=== PATIENT | male | born 1945 | race Caucasian/White ===

== ENCOUNTER 2018-01-02 14:05 | Observation (INO) | payer MEDICARE ==
[~2018-01-02] VITALS: Ht 180.3 cm; Wt 73.9 kg
[~2018-01-02 14:05] MED LIST: BUPROPION XL300 MG PO; CIPRO500 MG PO; DIAZEPAM5 MG PO; DICYCLOMINE; FLAGYL500 MG PO; HYOSCYAMINE; SIMVASTATIN40 MG PO
--- OUTSIDE RECORDS SUMMARY | 2018-01-02 14:07 | XMS REPORT | Clinical Summary ---
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 Disp. Refills Start End Date Status Date lisinopril Take 5 mg by mouth daily. Active (PRINIVIL,ZESTRIL) 5 MG tablet simvastatin (ZOCOR) 40 MG Take 40 mg by mouth Active tablet nightly. buPROPion (WELLBUTRIN SR) Take 300 mg by mouth Active 150 MG 12 hr tablet daily . acetaminophen (TYLENOL) Take 650 mg by mouth Active 325 MG tablet every 6 (six) hours as needed for Pain. eszopiclone (LUNESTA) 1 Take 3 mg by mouth every Active MG tablet night as needed Take immediately before bedtime. . carvedilol (COREG) 3.125 Take 3.125 mg by mouth 2 Active MG tablet (two) times daily with breakfast and dinner. traMADol (ULTRAM) 50 mg Take 50 mg by mouth every Active tablet 6 (six) hours as needed for Pain. multivitamin per tablet Take 1 tablet by mouth 05/04/20 Discontin daily. 17 ued meloxicam (MOBIC) 15 MG Take 15 mg by mouth 05/04/20 Discontin tablet daily. 17 ued baclofen (LIORESAL) 10 MG Take 10 mg by mouth 3 05/04/20 Discontin tablet (three) times daily. 17 ued Active Problems Problem Noted Date ED (erectile dysfunction) 06/29/2016 Encounters Date Type Specialty Care Team Description 05/06/2017 Hospital Tanmay Valdez MD Encounter 05/06/2017 Procedure Pass 05/06/2017 Surgery Tanmay Valdez MD INJECTION,EPIDURAL STEROID LUMBAR TRANSFORAMINAL 05/05/2017 Anesthesia Lisandra Sosa Event MD 05/04/2017 Hospital Pre-Admission Testing Encounter 01/17/2017 Outside Orders Radiology Julissa Mahajan MD Right anterior shoulder pain (Primary Dx) after 01/01/2017 Social History Tobacco Use Types Packs/Day Years Used Date Never Smoker Smokeless Tobacco: Never Used Alcohol Use Drinks/Week oz/Week Comments Yes 1 Glasses of 1.2 wine 1 Cans of beer Sex Assigned at Date Recorded Not on file Last Filed Vital Signs Vital Sign Reading Time Taken Blood Pressure 92/59 05/06/2017 9:55 AM CDT Pulse 65 05/06/2017 9:55 AM CDT Temperature 36.7 C (98 F) 05/06/2017 9:40 AM CDT Respiratory Rate 16 05/06/2017 9:55 AM CDT Oxygen Saturation 100% 05/06/2017 9:55 AM CDT Inhaled Oxygen - - Concentration Weight 75.3 kg (166 lb) 05/06/2017 8:35 AM CDT Height 180.3 cm (5' 11") 05/06/2017 8:35 AM CDT Body Mass Index 23.15 05/06/2017 8:35 AM CDT Plan of Treatment Not on file Implants Implanted Type Area Central Processing Technician Device Expiration Model / Identifier Date Serial / Lot Kit Asm Titan Pnle Imp [id number] - Urology N/A: Penis COLOPLAST 11/01 [id number] A/S:COLOPLAST / Implanted: Qty: 1 on 06/29/2016 by / Santiago Griffin MD [id number] [place] Titan Cl 125cc [id number] - Urology N/A: COLOPLAST 11/22/2020 [id number] / [id number] Abdomen A/S:COLOPLAST / Implanted: Qty: 1 on 06/29/2016 by [id number] Santiago Griffin MD Titan Cylinders 20cm Urology N/A: Penis [employer]LAST [employer]. 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 Radiology provided fluoroscopy for epidural injection performed by Dr. Valdez.Neither radiologist presence nor interpretation were requested. Please refer to the operative report for further information. Fluoroscopy time was 0.5 minutes. Total # of images: 3 Signed: Shen Campos MD Report Verified Date/Time:05/06/2017 11:51:48 Reading Location: [address] Radiology Reading Room Procedure Note Interface, External Ris In - 05/06/2017 11:53 AM CDT FINAL REPORT Nondiagnostic exam. Radiology provided fluoroscopy for epidural injection performed by Dr. Valdez. Neither radiologist presence nor interpretation were requested. Please refer to the operative report for further information. Fluoroscopy time was 0.5 minutes. Total # of images: 3 Signed: Shen Campos MD Report Verified Date/Time: 05/06/2017 11:51:48 Reading Location: [address] Radiology Reading Room after 01/01/2017
--- OUTSIDE RECORDS SUMMARY | 2018-01-02 14:07 | XMS REPORT | Continuity of Care Document ---
Author Author Interface Organization Interface Address Unknown Phone Unavailable Problems Problem Status Onset Date Classification Date Reported Comments Source Z91.81 M25.50 M25.531 Active 01/22/2017 [facility] RIGHT WRIST Active 12/23/2016 [facility] [place] RIGHT WRIST Active 2016 [facility] [place] ACUTE CHEST PAIN Active 07/23 [facility] CHEST PAIN Active 07/23/2016 [facility] Benign essential hypertension Active Problem 12/21/2017 [facility] ,[facility] Chronic bronchitis Active Problem 12/21/2017 [facility] Chronic pain Active Problem 12/21/2017 [facility] Major depression, chronic Active Problem 12/21/2017 [facility], [facility] Claustrophobia Active Problem 12/21/2017 [facility] History of penile implant Active Problem 12/21/2017 [facility], [facility] Hypercholesterolemia Active Problem 12/21/2017 [facility] Impacted cerumen of both ears Active Problem 12/21/2017 [facility] ,[facility] Irritable bowel syndrome Active Problem 12/21/2017 [facility], [facility] Low back pain Active Problem 12/21/2017 [facility] Mitral valve prolapse Active Problem 12/21/2017 [facility], [facility] Polyarthralgia Active Problem 12/21/2017 [facility] Chronic pain of right wrist Active Problem 12/21/2017 [facility] Panic attacks Active Problem 12/21/2017 [facility] Achilles tendon tear Active Problem 12/21/2017 [facility] Plantar fasciitis, right Active Problem 02/10/2017 [facility] Hypercholesteremia Resolved Problem 07/27/2016 [facility] Right elbow pain Active Problem 08/04/2017 [facility] Lateral epicondylitis of right elbow Active Problem 02/28 [facility] Mitral regurgitation Active Problem 08/04/2017 [facility] Lateral epicondylitis of right elbow Active Problem 08/04 [facility] CHEST PAIN, UNSPECIFIED Active [place] PAIN IN UNSPECIFIED JOINT Active [facility] Medications Medication Details Route Status Patient Instructions Ordering Provider Order Date Source eszopiclone 3 mg oral tablet
3 mg=1 tab, PO, Bedtime, PRN for insomnia, fax to [facility], X 90 day, # 90 tab, 0 Refill(s) No Longer Active 09/14/2017 [facility] Hydrocortisone 10 MG/ML / Neomycin 3.5 MG/ML / Polymyxin B 80200 UNT/ML Otic Solution
2 drp, RIGHT EAR, QID, X 10 day, # 10 ml , 0 Refill(s), Pharmacy: [id number] No Longer Active 09/14/2017 [facility] Azelastine hydrochloride 0.137 MG/ACTUAT / Fluticasone propionate 0.05 MG/ ACTUAT Metered Dose Nasal May
2 spray, NASAL, BID, X 30 day, # 23 gm, 1 Refill(s), Pharmacy: [facility] No Longer Active 09/09/2017 [facility] Metronidazole 500 MG Oral Tablet
500 mg=1 tab, PO , TID, X 7 day, # 21 tab, 0 Refill(s), Pharmacy: [facility] [id number] No Longer Active 08/19/2017 [facility] Metronidazole 500 MG Oral Tablet
500 mg=1 tab, PO , TID, 0 Refill(s) Active 07/28 [facility] Ciprofloxacin 500 MG Oral Tablet [Cipro]
500 mg= 1 tab, PO, Q12H, 0 Refill(s) Active 07/28/2017 [facility] simvastatin 40 mg oral tablet
40 mg=1 tab, PO, Bedtime, # 90 tab, 0 Refill(s), [facility] Active 07/08/2017 [facility] meloxicam 15 mg oral tablet
See Instructions, Take 1 tablet by mouth daily as needed for pain, # 90 tab, 0 Refill(s), [facility] Active 07/08/2017 [facility] lisinopril 5 mg oral tablet
5 mg=1 tab, PO, Daily , # 90 tab, 0 Refill(s), Pharmacy: [facility] Active 07/08/2017 [facility] hyoscyamine 0.125 mg oral tablet
0.25 mg=2 tab, PO, TID, PRN spasm, # 270 tab, 0 Refill(s), Pharmacy: [facility] Active 07/08/2017 [facility] Fluticasone propionate 0.05 MG/ACTUAT Metered Dose Nasal May
50 microgram=1 spray, NASAL, Daily, # 3 ea, 0 Refill(s), Pharmacy : [facility] Active 07/08/2017 [facility] eszopiclone 3 mg oral tablet
3 mg=1 tab, PO, Bedtime, PRN for insomnia, X 90 day, # 90 tab, 0 Refill(s) Active 07/08/2017 [facility] diazepam 5 mg oral tablet
5 mg=1 tab, PO, Q8H, PRN Anxiety, # 40 tab, 2 Refill(s) Active 07/08/2017 [facility] carvedilol 3.125 mg oral tablet
3.125 mg=1 tab, PO, BID, # 180 tab, 0 Refill(s), [facility]acy: [facility] Active 07/08/2017 [facility] baclofen 10 mg oral tablet
10 mg=1 tab, PO, TID, PRN muscle spasm, # 270 tab, 0 Refill(s), Pharmacy: [facility] Active 07/08/2017 [facility] tramadol hydrochloride 50 MG Oral Tablet
50 mg=1 tab, PO, Q4H, # 90 tab, 2 Refill(s) Active 07/08/2017 [facility] buPROPion 150 mg/24 hours (XL) oral tablet, extended release
150 mg=1 tab, PO, TID, # 270 tab, 0 Refill(s), [facility]: [facility] Active 07/08/2017 [facility] Carvedilol 3.125 MG Oral Tablet <td styleCode="xmain"> <span style="xdiv"><span style="Bold" ID="[id number]">Carvedilol 3.125 MG Oral Tablet</span></span><span style="xasIgnore">
</span><span style="xdiv">< span style="xsecondary"><span ID="[id number]">TAKE 1 TABLET TWICE DAILY WITH MEALS.</span></span></span><span style="xasIgnore">
</span><list styleCode="xlistForTable"><li styleCode="xlistForTable"><table styleCode= "xtableWithinTable"><tbody styleCode="xtableWithinTable"><tr><td><span style= "xLabel Italics"> Quantity: </span><span ID="[id number]"><span>60</span></ span></td><td><span style="xLabel Italics"> Refills: </span><span ID="[id number]"> <span>3</span></span></td></tr></tbody></table></li></list><span style= "xasIgnore">
</span><span style="xdiv"><span style="xsecondary"/></span></td ><td styleCode="xdates"><span style="xasIgnore">
</span><span style= "xproviderName"><span style="xproviderLastName">DAYAH</span><span> M.D., PHIL </span></span></td><td styleCode="xdetails"><list styleCode="xlistForTable "><li styleCode="xlistForTable"><table styleCode="xtableWithinTable"><tbody styleCode="xtableWithinTable"><tr><td><span style="xLabel Italics"> Start : </ span>08-Dec-2016</td></tr></tbody></table></li></list><span style="xstatus">< span style="xvalue">Active</span><span style="xasIgnore">
</span></span></td > ORAL Active DAYAH 12/08/2016 [facility] Metoprolol Succinate ER 25 MG Oral Tablet Extended Release 24 Hour <td styleCode="xmain"><span style="xdiv"><span style="Bold" ID= "[id number]">Metoprolol Succinate ER 25 MG Oral Tablet Extended Release 24 Hour</ span></span><span style="xasIgnore">
</span><span style="xdiv"><span style= "xsecondary"><span ID="[id number]">TAKE ONE TABLET BY MOUTH TWICE DAILY</span></ span></span><span style="xasIgnore">
</span><list styleCode="xlistForTable"> <li styleCode="xlistForTable"><table styleCode="xtableWithinTable"><tbody styleCode="xtableWithinTable"><tr><td><span style="xLabel Italics"> Quantity: </ span><span ID="[id number]"><span>180</span></span></td><td><span style="xLabel Italics"> Refills: </span><span ID="[id number]"><span>3</span></span></td></ tr></tbody></table></li></list><span style="xasIgnore">
</span><span style= "xdiv"><span style="xsecondary"/></span></td><td styleCode="xdates"><span style= "xasIgnore">
</span><span style="xproviderName"><span style= "xproviderLastName">GEMA</span><span> M.D., CIERRA </span></span></td><td styleCode="xdetails"><list styleCode="xlistForTable"><li styleCode= "xlistForTable"><table styleCode="xtableWithinTable"><tbody styleCode= "xtableWithinTable"><tr><td><span style="xLabel Italics"> Start : </span>2016</td></tr></tbody></table></li></list><span style="xstatus"><span style ="xvalue">Active</span><span style="xasIgnore">
</span></span></td> ORAL Active GEMA 11/02/2016 [facility]
2 mg, Route: PO, Bedtime, Dosing Weight 81.818, kg, Start date: 07/24/16 21:00:00 [employer], Duration: 30 day, Stop date: 21:00:00 [employer] Inactive 07/2016 [facility] Trazodone Hydrochloride 50 MG Oral Tablet
50 mg, 1 tab, Route: PO, Drug form: TAB, Bedtime, Dosing Weight 75, kg, Start date: 21:00:00 [employer], Duration: 30 day, Stop date: 08/22/16 21:00:00 [employer] Inactive 07/25/2016 [facility] aspirin 81 mg tablet, enteric coated
81 mg=1 tab , PO, Daily, 0 Refill(s) Active 07/24/2016 [facility] Saline Flush 0.9%
10 ml, Route: IVP, Drug Form: INJ, Dosing Weight 81.818, kg, Q12H, Start date: 07/24/16 9:00:00 [employer], Duration : 30 day, Stop date: 08/22/16 21:00:00 [employer]
Notes: (Same as: BD Posiflush) Inactive 07/24/2016 [facility] aspirin 81 mg tablet, enteric coated
81 mg, 1 tab , Route: PO, Drug form: ECTAB, Daily, Dosing Weight 81.818, kg, Start date: 9:00:00 [employer], Duration: 30 day, Stop date: 08/22/16 9:00:00 [employer] Inactive 07/24/2016 [facility] Ativan
0.5 mg, 0.25 mL, Route: IV, Drug form: INJ , ONCE, Dosing Weight 75, kg, Start date: 07/24/16 2:40:00 [employer], Stop date: 07/24 2:40:00 [employer]
Notes: (Same as: Ativan) Inactive 07/24/2016 [facility] Hydralazine
10 mg, 0.5 mL, Route: IV, Drug form: INJ, Q4H, Dosing Weight 81.818, kg, PRN Hypertension, Priority: Routine, Start date: 07/24/16 0:23:00 [employer], Duration: 30 day, Stop date: 08/23/16 0:22:00 [employer] Inactive 07/24/2016 [facility] Zofran
4 mg, 2 mL, Route: IVP, Drug form: INJ, Q8H, Dosing Weight 81.818, kg, PRN Nausea, Start date: 07/24/16 0:22:00 [employer], Duration: 30 day, Stop date: 08/23/16 0:21:00 [employer]
Notes: (Same as: Zofran) MEDICATION WASTE Product Size: 4 mg Product Wasted: ___ mg Inactive 07/24/2016 [facility] Saline Flush 0.9%
10 ml, Route: IVP, Drug Form: INJ, Dosing Weight 81.818, kg, PRN, PRN Line Flush, Start date: 07/24/16 0:13: 00 [employer], Duration: 30 day, Stop date: 08/23/16 0:12:00 [employer] Inactive 07/24/2016 [facility] Ondansetron
4 mg, Route: PO, Drug form: TAB, Q8H , Dosing Weight 81.818, kg, PRN Nausea & Vomiting, Start date: 07/24/16 0:13:00 [employer], Duration: 30 day, Stop date: 08/23/16 0:12:00 [employer] Inactive 07/24/2016 [facility] Nitroglycerin
0.4 mg, 1 tab, Route: SL, Drug form : TAB, Q5Min, Dosing Weight 81.818, kg, PRN Chest Pain, Start date: 07/24/16 0: 13:00 [employer], Duration: 3 doses or times, Stop date: Limited # of times Inactive 07/24/2016 [facility] Morphine
2 mg, 1 mL, Route: IVP, Drug form: INJ, Q15Min, Dosing Weight 81.818, kg, PRN Chest Pain, Start date: 07/24/16 0:13:00 [employer], Duration: 2 doses or times, Stop date: Limited # of times
Notes: (Same as:MORPhine Sulfate) Inactive 07/24/2016 [facility] Valium
5 mg, Route: PO, ONCE, Dosing Weight 81.818, kg, Priority: STAT, Start date: 07/23/16 22:51:00 [employer], Stop date: 22:51:00 [employer] Inactive 2015 [facility] Saline Flush 0.9%
10 mL, Route: IVP, Drug Form: INJ, Dosing Weight 81.818, kg, PRN, PRN Line Flush, Start date: 07/23/16 20:49: 00 [employer], Duration: 30 day, Stop date: 08/22/16 20:48:00 [employer]
Notes: (Same as: BD Posiflush) No Longer Active 07/24/2016 [facility] Medication not documented <td styleCode="xmain"><span style="xdiv"><span style="Bold" ID="[id number]">Medication not documented</span ></span><span style="xasIgnore">
</span><span style="xdiv"><span style= "xsecondary"/></span></td><td styleCode="xdates"/><td styleCode="xdetails">< span style="xstatus"><span style="xlabel"/><span style="xvalue"/></span></td> Other [facility] Albuterol 90 MCG/ACT AERS <td styleCode="xmain"><span style="xdiv"><span style="Bold" ID="[id number]">Albuterol 90 MCG/ACT AERS</span></ span><span style="xasIgnore">
</span><list styleCode="xlistForTable">< li styleCode="xlistForTable"><table styleCode="xtableWithinTable"><tbody styleCode="xtableWithinTable"><tr><td><span style="xLabel Italics"> Refills: </ span><span ID="[id number]"><span>0</span></span></td></tr></tbody></table></li></ list><span style="xasIgnore">
</span><span style="xdiv"><span style= "xsecondary"/></span></td><td styleCode="xdates"/><td styleCode="xdetails">< span style="xstatus"><span style="xvalue">Active</span><span style="xasIgnore">< br/></span></span></td> RESPIRATORY (INHALATION) Active [facility] Ascorbic Acid 500 MG Oral Tablet <td styleCode="xmain "><span style="xdiv"><span style="Bold" ID="[id number]">Ascorbic Acid 500 MG Oral Tablet</span></span><span style="xasIgnore">
</span><list styleCode= "xlistForTable"><li styleCode="xlistForTable"><table styleCode= "xtableWithinTable"><tbody styleCode="xtableWithinTable"><tr><td><span style= "xLabel Italics"> Refills: </span><span ID="[id number]"><span>0</span></span></ td></tr></tbody></table></li></list><span style="xasIgnore">
</span><span style="xdiv"><span style="xsecondary"/></span></td><td styleCode="xdates"/> <td styleCode="xdetails"><span style="xstatus"><span style="xvalue">Active</ span><span style="xasIgnore">
</span></span></td> ORAL Active [facility] BuPROPion HCl ER (Smoking Det) 150 MG Oral Tablet Extended Release 12 Hour <td styleCode="xmain"><span style="xdiv"><span style="Bold " ID="[id number]">BuPROPion HCl ER (Smoking Det) 150 MG Oral Tablet Extended Release 12 Hour</span></span><span style="xasIgnore">
</span><span style= "xdiv"><span style="xsecondary"><span ID="[id number]">TAKE 3 TABLET DAILY</span></ span></span><span style="xasIgnore">
</span><list styleCode="xlistForTable"> <li styleCode="xlistForTable"><table styleCode="xtableWithinTable"><tbody styleCode="xtableWithinTable"><tr><td><span style="xLabel Italics"> Refills: &lt ;/span><span ID="[id number]"><span>0</span></span></td></tr></tbody></table></li>< /list><span style="xasIgnore">
</span><span style="xdiv"><span style= "xsecondary"/></span></td><td styleCode="xdates"/><td styleCode="xdetails">< span style="xstatus"><span style="xvalue">Active</span><span style="xasIgnore">< br/></span></span></td> ORAL Active [facility] DiazePAM 5 MG Oral Tablet <td styleCode="xmain"><span style="xdiv"><span style="Bold" ID="[id number]">DiazePAM 5 MG Oral Tablet</span></ span><span style="xasIgnore">
</span><list styleCode="xlistForTable">< li styleCode="xlistForTable"><table styleCode="xtableWithinTable"><tbody styleCode="xtableWithinTable"><tr><td><span style="xLabel Italics"> Refills: </ span><span ID="[id number]"><span>0</span></span></td></tr></tbody></table></li></ list><span style="xasIgnore">
</span><span style="xdiv"><span style= "xsecondary"/></span></td><td styleCode="xdates"/><td styleCode="xdetails">< span style="xstatus"><span style="xvalue">Active</span><span style="xasIgnore">< br/></span></span></td> ORAL Active [facility] Dicyclomine HCl - 10 MG Oral Capsule <td styleCode= "xmain"><span style="xdiv"><span style="Bold" ID="[id number]">Dicyclomine HCl - 10 MG Oral Capsule</span></span><span style="xasIgnore">
</span><span style= "xdiv"><span style="xsecondary"><span ID="[id number]">TAKE 1 CAPSULE 3 TIMES DAILY PRN</span></span></span><span style="xasIgnore">
</span><list styleCode="xlistForTable"><li styleCode="xlistForTable"><table styleCode= "xtableWithinTable"><tbody styleCode="xtableWithinTable"><tr><td><span style= "xLabel Italics"> Refills: </span><span ID="[id number]"><span>0</span></span> </td></tr></tbody></table></li></list><span style="xasIgnore">
</span><span style="xdiv"><span style="xsecondary"/></span></td><td styleCode="xdates"/><td styleCode="xdetails"><span style="xstatus"><span style="xvalue">Active</span>< span style="xasIgnore">
</span></span></td> ORAL Active [facility] Eszopiclone 3 MG Oral Tablet <td styleCode="xmain">< span style="xdiv"><span style="Bold" ID="[id number]">Eszopiclone 3 MG Oral Tablet< /span></span><span style="xasIgnore">
</span><span style="xdiv"><span style="xsecondary"><span ID="[id number]">TAKE 1 TABLET AT BEDTIME NEEDED FOR SLEEP.</span></span></span><span style="xasIgnore">
</span><list styleCode= "xlistForTable"><li styleCode="xlistForTable"><table styleCode= "xtableWithinTable"><tbody styleCode="xtableWithinTable"><tr><td><span style= "xLabel Italics"> Refills: </span><span ID="[id number]"><span>0</span></span></td> </tr></tbody></table></li></list><span style="xasIgnore">
</span><span style="xdiv"><span style="xsecondary"/></span></td><td styleCode="xdates"/><td styleCode="xdetails"><span style="xstatus"><span style="xvalue">Active</ span><span style="xasIgnore">
</span></span></td> ORAL Active [facility] Fluticasone Propionate 50 MCG/ACT Nasal Suspension < td styleCode="xmain"><span style="xdiv"><span style="Bold" ID="[id number]"> Fluticasone Propionate 50 MCG/ACT Nasal Suspension</span></span><span style= "xasIgnore">
</span><list styleCode="xlistForTable"><li styleCode= "xlistForTable"><table styleCode="xtableWithinTable"><tbody styleCode= "xtableWithinTable"><tr><td><span style="xLabel Italics"> Refills: </span><span ID="[id number]"><span>0</span></span></td></tr></tbody></table></li></list>< span style="xasIgnore">
</span><span style="xdiv"><span style="xsecondary"/> </span></td><td styleCode="xdates"/><td styleCode="xdetails"><span style= "xstatus"><span style="xvalue">Active</span><span style="xasIgnore">
</ span></span></td> NASAL Active [facility] Hyoscyamine Sulfate 0.125 MG Oral Tablet Dispersible < td styleCode="xmain"><span style="xdiv"><span style="Bold" ID="[id number]"> Hyoscyamine Sulfate 0.125 MG Oral Tablet Dispersible</span></span><span style= "xasIgnore">
</span><list styleCode="xlistForTable"><li styleCode= "xlistForTable"><table styleCode="xtableWithinTable"><tbody styleCode= "xtableWithinTable"><tr><td><span style="xLabel Italics"> Refills: </span><span ID="[id number]"><span>0</span></span></td></tr></tbody></table></li></list><span style="xasIgnore">
</span><span style="xdiv"><span style="xsecondary"/></ span></td><td styleCode="xdates"/><td styleCode="xdetails"><span style="xstatus "><span style="xvalue">Active</span><span style="xasIgnore">
</span></span>< /td> ORAL Active [facility] Lisinopril 5 MG Oral Tablet <td styleCode="xmain">< span style="xdiv"><span style="Bold" ID="[id number]">Lisinopril 5 MG Oral Tablet</ span></span><span style="xasIgnore">
</span><span style="xdiv"><span style="xsecondary"><span ID="[id number]">TAKE 1/2 TABLET DAILY.</span></span></ span><span style="xasIgnore">
</span><list styleCode="xlistForTable"><li styleCode="xlistForTable"><table styleCode="xtableWithinTable"><tbody styleCode= "xtableWithinTable"><tr><td><span style="xLabel Italics"> Quantity: </span>< span ID="[id number]"><span>1</span></span></td><td><span style="xLabel Italics "> Refills: </span><span ID="[id number]"><span>0</span></span></td></tr></tbody></ table></li></list><span style="xasIgnore">
</span><span style="xdiv"><span style="xsecondary"/></span></td><td styleCode="xdates"><span style="xasIgnore">< br/></span><span style="xproviderName"><span style="xproviderLastName">DAYAH</ span><span> M.D., PH[place] </span></span></td><td styleCode="xdetails"><span style= "xstatus"><span style="xvalue">Active</span><span style="xasIgnore">
</span> </span><span style="xdiv"><span ID="[id number]">30 Tablet Pack</span></span><span style="xasIgnore">
</span></td> ORAL Active DAY [facility] Simvastatin 40 MG Oral Tablet <td styleCode="xmain">< span style="xdiv"><span style="Bold" ID="[id number]">Simvastatin 40 MG Oral Tablet </span></span><span style="xasIgnore">
</span><span style="xdiv"><span style ="xsecondary"><span ID="[id number]">TAKE 1 TABLET AT BEDTIME.</span></span></ span><span style="xasIgnore">
</span><list styleCode="xlistForTable"><li styleCode="xlistForTable"><table styleCode="xtableWithinTable"><tbody styleCode="xtableWithinTable"><tr><td><span style="xLabel Italics"> Refills: </ span><span ID="[id number]"><span>0</span></span></td></tr></tbody></table></ li></list><span style="xasIgnore">
</span><span style="xdiv"><span style="xsecondary"/></span></td><td styleCode="xdates"/><td styleCode="xdetails "><span style="xstatus"><span style="xvalue">Active</span><span style="xasIgnore ">
</span></span></td> ORAL Active [facility] Hyoscyamine Sulfate 0.125 MG Oral Tablet Disintegrating <td styleCode="xmain"><span style="xdiv"><span style="Bold" ID="[id number]"> Hyoscyamine Sulfate 0.125 MG Oral Tablet Disintegrating</span></span><span style="xasIgnore">
</span><list styleCode="xlistForTable"><li styleCode= "xlistForTable"><table styleCode="xtableWithinTable"><tbody styleCode= "xtableWithinTable"><tr><td><span style="xLabel Italics"> Refills: </span><span ID="[id number]"><span>0</span></span></td></tr></tbody></table></li></list><span style="xasIgnore">
</span><span style="xdiv"><span style="xsecondary"/> </span></td><td styleCode="xdates"/><td styleCode="xdetails"><span style= "xstatus"><span style="xvalue">Active</span><span style="xasIgnore">
</span> </span></td> ORAL Active [facility] Allergies, Adverse Reactions, Alerts Substance Category Reaction Severity Reaction type Status Date Reported Comments Source NKDA Assertion Drug allergy [facility] NKFA Assertion Drug allergy [facility] Allergy history not documented allergy to substance [facility] No Known Drug Allergies drug allergy Active [facility] Immunizations Immunization Date Given Site Status Last Updated Comments Source Hx influenza vaccine-unspecified 03/25/2017 completed [facility] Results Order Name Results Value Reference Range Date Interpretation Comments Source Wrist complete DX Wrist complete DX Patient Name: KUMAR BUCKLEY : 1945; Age: 72 years y/o Male MR: [id number] * RIGHT WRIST, 3 views HISTORY: - M25.531 Pain in right wrist; Technique: Frontal, oblique, and lateral radiographs of the right wrist were obtained. FINDINGS: The soft tissues are unremarkable. No radiopaque foreign body is seen. The joint spaces are well-maintained. There are no significant degenerative changes. There is no evidence of fracture, dislocation, or acute change. There are no destructive lesions or other significant osseous abnormalities. IMPRESSION: 1. Negative right wrist. SL: [id number] 02/07/2017 - - Read by: Darnell Carnes MD Dictated Date/time: 02/07/17 16:33 Electronically Signed by: Darnell Carnes MD 02/07/17 16 :34 FINAL REPORT [facility] CARDIAC ENZYMES Troponin-I null 0.00 - 0.40 07/24/2016 [facility] CARDIAC ENZYMES Total CK 51 unit/L 12 - 191 07/24/2016 [facility] LIPIDS VLDL 26 07/24/2016 [facility] LIPIDS HDL 51 mg/dL >=61 mg/dL 07/24/2016 [facility] LIPIDS LDL (Calculated) 93 mg /dL <=99 mg/dL 07/24/2016 [facility] LIPIDS CHD Risk 3.33 4.00 - 7.30 07/24/2016 [facility] LIPIDS Trig 132 mg/dL <=149 mg/dL 07/24/2016 [facility] LIPIDS Chol 170 mg/dL <=199 mg/dL 07/24/2016 [facility] CARDIAC ENZYMES Troponin-I null 0.00 - 0.40 07/24/2016 [facility] CARDIAC ENZYMES Total CK 64 unit/L - 07/24/2016 [facility] CARDIAC ENZYMES CK MB Index null 0.0 - 2.5 07/24/2016 [facility] CARDIAC ENZYMES BNP 14 pg/mL <=100 pg/mL 07/24/2016 [facility] CARDIAC ENZYMES Total CK 59 unit/L 12 - 191 07/24/2016 [facility] CARDIAC ENZYMES CK MB null 0.5 - 3.6 07/24/2016 [facility] CARDIAC ENZYMES Troponin-I null 0.00 - 0.40 07/24/2016 [facility] CHEM PANEL Lipase Lvl 295 unit/L 73 - 393 07/24/2016 [facility] CHEM PANEL eGFR 68 mL/min/ 1.73m2 07/24/2016 Result Comment: The eGFR is calculated using the CKD-EPI formula. In most young, healthy individuals the eGFR will be >90 mL/min/1.73m2. The eGFR declines with age. An eGFR of 60-89 may be normal in some populations, particularly the elderly, for whom the CKD- EPI formula has not been extensively validated. Use of the eGFR is not recommended in the following populations: Individuals with unstable creatinine concentrations, including patients and those with serious co-morbid conditions. Patients with extremes in muscle mass or diet. The data above are obtained from the National Kidney Disease Education Program ( NKDEP) which additionally recommends that when the eGFR is used in patients with extremes of body mass index for purposes of drug dosing, the eGFR should be multiplied by the estimated BMI. [facility] CHEM PANEL Glucose Lvl 116 mg /dL 70 - 99 07/24/2016 [facility] CHEM PANEL BUN 16 mg/dL 7 - 22 07/24/2016 [facility] CHEM PANEL Creatinine Lvl 1.10 mg/dL 0.50 - 1.40 2015 [facility] CHEM PANEL Sodium Lvl 140 meq /L 135 - 145 07/24/2016 [facility] CHEM PANEL Potassium Lvl 4.0 meq/L 3.5 - 5.1 07/24/2016 [facility] CHEM PANEL Chloride Lvl 105 meq/L 95 - 109 07/24/2016 [facility] CHEM PANEL CO2 28 meq/L 24 - 32 07/24/2016 [facility] CHEM PANEL Calcium Lvl 9.0 mg /dL 8.5 - 10.5 07/24/2016 [facility] CHEM PANEL Albumin Lvl 3.8 g/ dL 3.5 - 5.0 07/24/2016 [facility] CHEM PANEL AST 34 unit/L 0 - 37 07/24/2016 [facility] CHEM PANEL Total Protein 7.1 g/dL 6.4 - 8.4 07/24/2016 [facility] CHEM PANEL ALT 53 unit/L 0 - 65 07/24/2016 [facility] CHEM PANEL Alk Phos 72 unit/ L 39 - 136 07/24/2016 [facility] CHEM PANEL Bili Total 0.4 mg/ dL 0.2 - 1.3 07/24/2016 [facility] CHEM PANEL AGAP 11.0 meq/L 10.0 - 20.0 07/24/2016 [facility] CHEM PANEL B/C Ratio 15 6 - 25 07/24/2016 [facility] CHEM PANEL Globulin 3.3 g/dL 2.7 - 4.2 07/24/2016 [facility] CHEM PANEL A/G Ratio 1.2 0.7 - 1.6 07/24/2016 [facility] HEMATOLOGY Monocytes # 0.5 K/ CMM 0.0 - 0.8 07/24/2016 [facility] HEMATOLOGY Eosinophils # 0.1 K/CMM 0.0 - 0.5 07/24/2016 [facility] HEMATOLOGY Basophils # 0.1 K/ CMM 0.0 - 0.2 07/24/2016 [facility] HEMATOLOGY Lymphocytes 35.2 % 20.0 - 40.0 07/24/2016 [facility] HEMATOLOGY Segs 51.4 % 45.0 - 75.0 07/24/2016 [facility] HEMATOLOGY Eosinophils 2.3 % 0.0 - 4.0 07/24/2016 [facility] HEMATOLOGY Monocytes 9.8 % 2.0 - 12.0 07/24/2016 [facility] HEMATOLOGY Basophils 1.3 % 0.0 - 1.0 07/24/2016 [facility] HEMATOLOGY Segs-Bands # 2.7 K /CMM 1.5 - 8.1 07/24/2016 [facility] HEMATOLOGY Lymphocytes # 1.9 K/CMM 1.0 - 5.5 07/24/2016 [facility] HEMATOLOGY PT 12.8 s 12.0 - 14.7 07/24/2016 [facility] HEMATOLOGY INR 0.94 0.85 - 1.17 07/24/2016 [facility] HEMATOLOGY RBC 5.06 M/CMM 4.70 - 6.10 07/24/2016 [facility] HEMATOLOGY Hgb 15.4 g/dL 14.0 - 18.0 07/24/2016 [facility] HEMATOLOGY MCV 89.7 fL 80.0 - 94.0 07/24/2016 [facility] HEMATOLOGY MCH 30.4 pg 27.0 - 31.0 07/24/2016 [facility] HEMATOLOGY Hct 45.4 % 42.0 - 54.0 07/24/2016 [facility] HEMATOLOGY MCHC 33.9 g/dL 32.0 - 36.0 07/24/2016 [facility] HEMATOLOGY RDW 13.0 % 11.5 - 14.5 07/24/2016 [facility] HEMATOLOGY Platelet 213 K/ CMM 133 - 450 07/24/2016 [facility] HEMATOLOGY WBC 5.3 K/CMM 3.7 - 10.4 07/24/2016 [facility] HEMATOLOGY MPV 8.1 fL 7.4 - 10.4 07/24/2016 [facility] HEMATOLOGY PTT 25.3 s 22.9 - 35.8 07/24/2016 [facility] URINE AND STOOL UA Urobilinogen <=1.0 mg/dL 0.1 - 1.0 [facility] URINE AND STOOL UA pH >=9.0 *ABN* (07/23/16 9:02 PM) 5.0 - 8.0 07/24/2016 [facility] URINE AND STOOL UA Color Colorless 07/24/2016 [facility] URINE AND STOOL UA Bili Negative *NA* (07/23/16 9:02 PM) Negative 07/24/2016 [facility] URINE AND STOOL UA Ketones Negative mg/dL Negative mg/dL 07/24/2016 [facility] URINE AND STOOL UA Glucose Negative mg/dL Negative mg/dL 07/24/2016 [facility] URINE AND STOOL UA Protein Negative mg/dL Negative mg/dL 07/24/2016 [facility] URINE AND STOOL UA Sq Epi Occasional /LPF Few /LPF [facility] URINE AND STOOL UA Leuk Est Negative (07/23/16 9:02 PM) Negative 07/24/2016 [facility] URINE AND STOOL UA Turbidity Clear (07/23/16 9:02 PM) Clear [facility] URINE AND STOOL UA Spec Grav 1.006 <=1.030 07/24/2016 [facility] URINE AND STOOL UA Nitrite Negative (07/23/16 9:02 PM) Negative 07/24/2016 [facility] URINE AND STOOL UA Blood Negative (07/23/16 9:02 PM) Negative 07/24/2016 [facility] Chest 1view DX Chest 1view DX Patient Name: KUMAR BUCKLEY : 1945; Age: 71 years Male MR: [id number] Study: Chest 1view DX 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 COMPARISON: None FINDINGS: Views: 1 LUNGS: There is increased lung volume. There are no suspicious interstitial/ airspace opacities. Blunting of the right costophrenic angle. There is no pneumothorax. The pulmonary vasculature is normal. MEDIASTINUM: The cardiac silhouette is normal. The trachea is midline. BONES: There are no clinically significant osseous abnormalities noted. IMPRESSION: Blunting of the right costophrenic angle may be due to small effusion. SL: [id number] 07/23/2016 - - Read by: Michael Nguyễn MD Dictated Date/time: 07/23/16 22:22 Electronically Signed by: Michael Nguyễn MD 07/23/16 22 :24 FINAL REPORT [facility] Vital Signs Vital Sign Value Date Comments Source BMI Calculated 23.77 [facility] Weight 77.301 12/05/[facility] Height 180.34 cm 12/05/2017 [facility] Temperature Oral (F) 97.6 F 12/05/2017 [facility] Heart Rate 81 12/05/2017 [facility] Systolic (mm Hg) 118 [facility] Diastolic (mm Hg) 80 [facility] Height 180.34 cm 09/14/2017 [facility] Temperature Oral (F) 97.7 F 09/14/2017 [facility] Weight 77.443 09/14/2017 [facility] BMI Calculated 23.81 [facility] Systolic (mm Hg) 149 [facility] Diastolic (mm Hg) 93 [facility] Heart Rate 83 09/14/2017 [facility] Temperature Oral (F) 98.0 F 09/09/2017 [facility] Heart Rate 74 09/09/2017 [facility] Systolic (mm Hg) 121 [facility] Diastolic (mm Hg) 82 [facility] BMI Calculated 23.36 [facility] Weight 75.966 09/09/2017 [facility] Height 180.34 cm 09/09/2017 [facility] Weight 75 09/07/2017 [facility] BMI Calculated 23.06 2017 [facility] Height 180.34 cm 09/07/2017 [facility] Height 180.34 cm 07/28/2017 [facility] Weight 75.909 07/28/2017 [facility] BMI Calculated 23.34 [facility] Temperature Oral (F) 97.4 F 07/28/2017 [facility] Heart Rate 79 07/28/2017 [facility] Systolic (mm Hg) 124 2017 [facility] Diastolic (mm Hg) 88 2017 [facility] Height 180.34 cm 07/08/2017 [facility] Weight 77.273 07/08/2017 [facility] BMI Calculated 23.76 2016 [facility] Respitory Rate 20 2016 [facility] Heart Rate 91 07/08/2017 [facility] Systolic (mm Hg) 142 2016 [facility] Diastolic (mm Hg) 91 [facility] Temperature Oral (F) 97.8 F 07/08/2017 [facility] Systolic (mm Hg) 138 2016 [facility] Diastolic (mm Hg) 87 2016 [facility] Height 70 12/08/2016 [facility] Weight 167.125 12/08/2016 [facility] BMI Calculated 23.98 2016 [facility] Heart Rate 105 12/08/2016 [facility] Systolic (mm Hg) 133 2016 [facility] Diastolic (mm Hg) 86 2016 [facility] Heart Rate 95 10/27/2016 [facility] Height 70 10/27/2016 [facility] Weight 165.5 10/27/2016 [facility] BMI Calculated 23.75 2016 [facility] Height 198.12 cm 07/24/2016 [facility] Temperature Oral (F) 97.6 F 07/24/2016 [facility] Systolic (mm Hg) 129 2015 [facility] Diastolic (mm Hg) 79 2015 [facility] Heart Rate 87 07/24/2016 [facility] Respitory Rate 16 2015 [facility] Respitory Rate 16 2015 [facility] Heart Rate 81 07/24/2016 [facility] Systolic (mm Hg) 114 2015 [facility] Diastolic (mm Hg) 64 2015 [facility] Temperature Oral (F) 97.9 F 07/24/2016 [facility] Systolic (mm Hg) 133 2015 [facility] Diastolic (mm Hg) 84 2015 [facility] Temperature Oral (F) 98 F [facility] Heart Rate 86 07/24/2016 [facility] Respitory Rate 18 2015 [facility] Weight 75 07/24/2016 [facility] BMI Calculated 23.06 2015 [facility] Height 180.34 cm 07/24/2016 [facility] Height 180.34 cm 07/24/2016 [facility] BMI Calculated 25.16 2015 [facility] Weight 81.818 07/24/2016 [facility] Encounters Location Location Details Encounter Type Encounter Number Reason For Visit Attending Provider ADM Date DC Date Status Source Outpatient [id number] TASHA ORNELAS 03/23/2016 [facility] Outpatient [id number] TASHA ORNELAS 07/13/2016 [facility] Observation [id number] Luis Norris 201507/24/2016 [facility] [id number] 09/03/2016 [facility] [id number] 09/10/2016 [facility] [id number] 10/15/2016 [facility] [id number] 10/27/2016 [facility] [id number] 12/03/2016 [facility] [id number] 12/07/2016 [facility] [id number] 12/08/2016 [facility] Outpatient [id number] TASHA ORNELAS [address] [facility] Outpatient [id number] SCOOBY WHEATLEYH 02/07/2017 [facility] Outpatient [id number] Scooby Pedro 02/07/2017 02/08/2017 [facility] Outpatient [id number] [facility] 04/11/2017 [facility] [id number] 06/15/2017 [facility] Outpatient [id number] MAXIMUS MANASA-JURADO 07/08/2017 [facility] Outpatient [id number] Maximus Manasa-Jurado 07/09/2017 [facility] Outpatient [id number] MAXIMUS MANASA-JURADO 07/28/2017 [facility] Outpatient [id number] Maximus Manasa-Jurado 10/201707/29/2017 [facility] Phone Message [id number] 08/01/2017 08/03/2017 [facility] Phone Message [id number] 08/01/2017 08/03/2017 [facility] Phone Message [id number] 08/18/2017 08/20/2017 [facility] Outside Medical Records [id number] 201709/02/2017 [facility] Phone Message [id number] 08/31/2017 09/02/2017 [facility] Outpatient [id number] MATTHEW PRIYANK 09/07/2017 [facility] [id number] Maximus Manasa-Jurado 09/07/2017 09/08/2017 [facility] Outpatient [id number] CB CALLE 09/09/2017 Active [facility] Outpatient [id number] Maximus Manasa-Jurado 09/10/2017 [facility] Phone Message [id number] 09/13/2017 09/15/2017 [facility] Outpatient [id number] MAXIMUS MANASA-JURADO 09/14/2017 Active [facility] Outpatient [id number] Maximus Manasa-Jurado 09/15/2017 [facility] Outpatient [id number] MAXIMUS MANASA-JURADO 12/05/2017 Active [facility] Outpatient [id number] Maximus Manasa-Jurado 12/06/2017 [facility] Outpatient [id number] MAXIMUS MANASA-JURADO [address] [facility] Procedures Procedure Code Date Perfomer Comments Source Removal impacted cerumen using irrigation/lavage, unilateral 65718 09/09/2017 [facility] Implantation of penile prosthesis [id number] 06/24/2016 [facility] Implantation of penile prosthesis [id number] 06/24/2016 [facility] Implantation of penile prosthesis [id number] 06/24/2016 [facility] Release of plantar fascia<sup>1, 2</sup> [id number] 11/10/2007 right footExcision of possible overabundance of distal plantar medial Pacinian corpuscles (1 cm), plantar medial foot [facility] Release of plantar fascia<sup>1, 2</sup> [id number] 11/10/2007 right footExcision of possible overabundance of distal plantar medial Pacinian corpuscles (1 cm), plantar medial foot [facility] Release of plantar fascia<sup>1, 2</sup> [id number] 11/10/2007 right footExcision of possible overabundance of distal plantar medial Pacinian corpuscles (1 cm), plantar medial foot [facility] Implantation of penile prosthesis [id number] 07/25/1991 [facility] Implantation of penile prosthesis [id number] 07/25/1991 [facility] Implantation of penile prosthesis [id number] 07/25/1991 [facility] Hernia repair [id number] [facility] Operation for impingement syndrome of shoulder region<sup>3</sup> [id number] both shoulders (2002 and 2003) [facility] Hernia repair [id number] [facility] Operation for impingement syndrome of shoulder region<sup>3</sup> [id number] both shoulders (2002 and 2003) [facility] Hernia repair [id number] [facility] Operation for impingement syndrome of shoulder region<sup>3</sup> [id number] both shoulders (2002 and 2003) [facility]
--- OUTSIDE RECORDS SUMMARY | 2018-01-02 14:08 | XMS REPORT | Summary of Care ---
Author Author [facility] Organization [facility] Address Unknown Phone Unavailable Encounter HQ Nicolas(FIN) [id number] Date(s): 08/31/17 - 09/01/17 [facility] [id number] [facility] [phone] Vital Signs No data available for this section Problem List Condition Effective Dates Status Health Status Informant Benign essential Active hypertension(Confirm ed) Chronic Active bronchitis(Confirmed ) Chronic Active pain(Confirmed) Major depression, Active chronic(Confirmed) Claustrophobia(Confi Active rmed) History of penile Active implant(Confirmed) Hypercholesterolemia Active (Confirmed) Impacted cerumen of Active both ears(Confirmed) Irritable bowel Active syndrome(Confirmed) Low back Active pain(Confirmed) Mitral valve Active prolapse(Confirmed) Polyarthralgia(Confi Active rmed) Chronic pain of Active right wrist(Confirmed) Panic Active attacks(Confirmed) Achilles tendon Active tear(Confirmed) Allergies, Adverse Reactions, Alerts Substance Reaction Severity Status NKFA Active NKDA Active Medications No data available for this section Results No data available for this section Immunizations Given and Recorded Vaccine Date Status Refusal Reason Hx influenza vaccine-unspecified 03/25/17 Recorded Procedures Procedure Date Related Diagnosis Body Site Status Implantation of penile prosthesis 06/2016 Completed Release of plantar fascia1, 2 11/10/07 Completed Implantation of penile prosthesis 1991 Completed Hernia repair Completed Operation for impingement syndrome of Completed shoulder region3 1right foot 2Excision of possible overabundance of distal plantar medial Pacinian corpuscles (1 cm), plantar medial foot 3both shoulders (2002 and 2003) Social History Social History Type Response Substance Abuse Use: None. Exercise Exercise type: none. Employment/School Status: Retired. Alcohol Current, Type Wine. Frequency: 1-2 times per week. Smoking Status Never smoker; Exposure to Tobacco Smoke None; Cigarette Smoking Last 365 Days No; Reg Smoking Cessation Counseling Yes entered on: 12/05/17 Assessment and Plan No data available for this section
--- OUTSIDE RECORDS SUMMARY | 2018-01-02 14:08 | XMS REPORT | Summary of Care ---
Author Author [facility] Organization [facility] Address Unknown Phone Unavailable Encounter DEBBIE Valenzuela(FIN) [id number] Date(s): 08/01/17 - 08/02/17 [place] [address] [facility], [address] [place], [place] [id number]- [phone] Vital Signs No data available for this [...] Adverse Reactions, Alerts Substance Reaction Severity Status NKDA Active Medications No data available for [...] Reg Smoking Cessation Counseling Yes entered on: 07/28/17 Assessment and Plan No data available for this section
--- OUTSIDE RECORDS SUMMARY | 2018-01-02 14:08 | XMS REPORT | Summary of Care ---
Author Author [facility] Organization [facility] Address Unknown Phone Unavailable Encounter HQ David_ole(FIN) [id number] Date(s): 08/31/17 - 09/01/17 [place] [address] [facility], [address] [place] [address]- [phone] Vital Signs No data available for this [...]
--- OUTSIDE RECORDS SUMMARY | 2018-01-02 14:08 | XMS REPORT | Summary of Care ---
Author Author Arnaldo Blank, Brooklyn Lee Unknown Address [facility] Phone Unavailable Care Team Providers Care Pattern Checker Name Role Phone GEMA Banks, CIERRA Unavailable Unavailable GEMA BROWN AR, CIERRA Valencia Unavailable Unavailable Unavailable Unavailable Functional Status Name Dates Details Functional status health issues are not documented Status: Name Dates Details Cognitive status health issues are not documented Status: Problems Name Dates Details Right elbow pain (719.42, M25.521) Status: Active Lateral epicondylitis of right elbow (726.32, M77.11) Status: Active Mitral regurgitation (424.0, I34.0) Status: Active Medications Name Dates Details Albuterol 90 MCG/ACT AERS Active Ascorbic Acid 500 MG Oral Tablet * Refills: 0 Active BuPROPion HCl ER (Smoking Det) 150 MG Oral Tablet Extended Release 12 Hour * Refills: 0 Active DiazePAM 5 MG Oral Tablet * Refills: 0 Active Dicyclomine HCl - 10 MG Oral Capsule TAKE 1 CAPSULE 3 TIMES DAILY. * Refills: 0 Active Eszopiclone 3 MG Oral Tablet TAKE 1 TABLET AT BEDTIME NEEDED FOR SLEEP. * Refills: 0 Active Fluticasone Propionate 50 MCG/ACT Nasal Suspension * Refills: 0 Active Hyoscyamine Sulfate 0.125 MG Oral Tablet Dispersible * Refills: 0 Active Lisinopril 5 MG Oral Tablet TAKE 1 TABLET DAILY * Quantity: 90 Refills: 3 CIERRA RIBEIRO M.D. Active Simvastatin 40 MG Oral Tablet TAKE 1 TABLET AT BEDTIME. * Refills: 0 Active Metoprolol Succinate ER 25 MG Oral Tablet Extended Release 24 Hour TAKE ONE TABLET BY MOUTH TWICE DAILY * Quantity: 180 Refills: 3 CIERRA RIBEIRO M.D. * Start : 02-Nov-2016 Active Allergies and Adverse Reactions Name Dates Details No Known Drug Allergies (Allergy) Status: Active Procedures Procedure Dates Details [N] 2D Echo complete, with Doppler 82578 Date: 28-Oct-2016 Immunization Name Dates Details Immunizations not documented Social History Name Dates Details - Status: Name Dates Details Never smoker Vital Signs Date Test Result Details 27-Oct-20169:12 BP Systolic 133 mm[Hg] Status: Comments: Location: LUE; Position: Sitting BP Diastolic 86 mm[Hg] Status: Comments: Location: LUE; Position: Sitting Height 70 in Status: Weight 165.5 lb Status: Body Mass Index Calculated 23.75 kg/m2 Status: Body Surface Area Calculated 1.93 m2 Status: Heart Rate 95 /min Status: Comments: Location: L Radial; Physical Findings 35.5 Status: Comments: Waist Circumference Results Date Description Value Details Results not documented Plan of Care Name Dates Details Planned Observations Planned Goals not documented Planned Encounters Appointment; ÓSCAR CONLEY M.D. On: 12-Nov-2016 10:30 Appointment; KRUPA LAUREANO On: 01-Dec-2016 10:00 Appointment; CIERRA RIBEIRO M.D. On: 29-Dec-2016 10:00 Interventions Provided Plan* 70 y/o w/ PMH of HTN, HLD, and severe MR presents for evaluation of his MR. * 1.Severe mitral regurgitation- * At this current time Mr. Martinez is minimally active and thus doesn't have significant exertional symptoms. Given that he is not currently on optimal guideline based treatment we will recommend to increase his lisinopril for further afterload reduction and to add a BB kin given that his HR is in the 90's. * Mr. Martinez has been asked to return to clinic to monitor his clinic status on this new regimen, he will also have a pre-clinic echo to evaluate the severity of his MR. Instructions Name Dates Details Instructions not documented Encounters Appointment; ÓSCAR CONLEY M.D. Encounter Diagnosis: Problem not documented On: 03-Sep-2016 11:00 Appointment; ÓSCAR CONLEY M.D. Encounter Diagnosis: Problem not documented On: 10-Sep-2016 10:00 Appointment; ÓSCAR CONLEY M.D. Encounter Diagnosis: Problem not documented On: 15-Oct-2016 9:35 Appointment; CIERRA RIBEIRO M.D. Encounter Diagnosis: Problem not documented On: 27-Oct-2016 9:20
--- OUTSIDE RECORDS SUMMARY | 2018-01-02 14:08 | XMS REPORT | Summary of Care ---
Author Author DAHIANA Banks, PHIL Organization Unknown Address Unknown Phone Unavailable Care Team Providers Care Practice Professional Name Role Phone GEMA Banks, CIERRA Unavailable Unavailable GEMA BROWN NE, CIERRA Valencia RP Unavailable Functional Status Functional Status Health Issues* Name Dates Details Functional status health issues are not documented Status: Cognitive Status Health Issues* Name Dates Details Cognitive status health issues are not documented Status: Problems Name Dates Details Right elbow pain (719.42, M25.521) Status: Active Lateral epicondylitis of right elbow (726.32, M77.11) Status: Active Mitral regurgitation (424.0, I34.0) Status: Active Medications Name Dates Details Albuterol 90 MCG/ACT AERS ActiveAscorbic Acid 500 MG Oral Tablet * Refills: 0 ActiveBuPROPion HCl ER (Smoking Det) 150 MG Oral Tablet Extended Release 12 Hour * Refills: 0 ActiveDiazePAM 5 MG Oral Tablet * Refills: 0 ActiveDicyclomine HCl - 10 MG Oral Capsule TAKE 1 CAPSULE 3 TIMES DAILY. * Refills: 0 ActiveEszopiclone 3 MG Oral Tablet TAKE 1 TABLET AT BEDTIME NEEDED FOR SLEEP. * Refills: 0 ActiveFluticasone Propionate 50 MCG/ACT Nasal Suspension * Refills: 0 ActiveHyoscyamine Sulfate 0.125 MG Oral Tablet Dispersible * Refills: 0 ActiveLisinopril 5 MG Oral Tablet TAKE 1 TABLET DAILY. * Refills: 0 ActiveSimvastatin 40 MG Oral Tablet TAKE 1 TABLET AT BEDTIME. * Refills: 0 Active Allergies and Adverse Reactions Name Dates Details No Known Drug Allergies Status: Active Procedures Procedure Dates Details Procedures not documented Immunization Name Dates Details Immunizations not documented Social History Name Dates Details - Smoking Status* Never smoker Vital Signs Date Test Result Details 27-Oct-2016 09:12 BP Systolic 133 mm[Hg] Status: BP Diastolic 86 mm[Hg] Status: Heart Rate 95 /min Status: Height 70 in Status: Weight 165.5 lb Status: Body Mass Index Calculated 23.75 kg/m2 Status: Body Surface Area Calculated 1.93 m2 Status: Results Date Description Value Details Results not documented Plan of Care Planned Observations* Name Dates Details Planned Goals not documented Goal Planned Encounters* Appointment; Provider: CIERRA RIBEIRO On 10:00 * Appointment; Provider: KRUPA LAUREANO On 01-Dec-2016 10:00 * Appointment; Provider: ÓSCAR CONLEY On 12-Nov-2016 10:30 Instructions * Instructions not documented Encounters Appointment; ÓSCAR CONLEY Encounter Diagnosis: Problem not documented On 15-Oct-2016 09:35 Appointment; ÓSCAR CONLEY Encounter Diagnosis: Problem not documented On 10-Sep-2016 10:00 Appointment; ÓSCAR CONLEY Encounter Diagnosis: Problem not documented On 03-Sep-2016 11:00
--- OUTSIDE RECORDS SUMMARY | 2018-01-02 14:08 | XMS REPORT | Summary of Care ---
Author Author [facility] Organization [facility] Address Unknown Phone Unavailable Encounter DEBBIE Valenzuela(RADHA) [id number] Date(s): 09/07/17 - 09/07/17 [facility] [address] [address] [facility], [facility], [address] [place], [place] [address]RUST [phone] Discharge Disposition: Home or Self Care Attending Physician: Wanda Black MD Referring Physician: Marina López MD Vital Signs Most recent to 1 oldest [Reference Range]: Height 180.34 cm (09/07/17 12:29 PM) Weight 75 kg (09/07/17 12:29 PM) Body Mass Index 23.06 m2 (09/07/17 12:29 PM) Problem List Condition Effective Dates Status Health [...]
--- OUTSIDE RECORDS SUMMARY | 2018-01-02 14:08 | XMS REPORT | Summary of Care ---
Author Author [facility] Organization [facility] Address Unknown Phone Unavailable Encounter DEBBIE Valenzuela(FIN) [id number] Date(s): 08/01/17 - 08/02/17 [place] [address] [facility], [address] [place] [address]- [phone] Vital Signs No data available for this [...] Reg Smoking Cessation Counseling Yes entered on: 09/14/17 Assessment and Plan No data available for this section
--- OUTSIDE RECORDS SUMMARY | 2018-01-02 14:08 | XMS REPORT | Summary of Care ---
Author Author [facility] Organization [facility] Address Unknown Phone Unavailable Encounter HQ Nicolas(FIN) [id number] Date(s): 12/05/17 - 12/05/[address], [address] [place] [address]- [phone] Discharge Disposition: Home or Self Care Attending Physician: Marina López MD Vital Signs Most recent to 1 oldest [Reference Range]: Height 180.34 cm (12/05/17 1:59 PM) Temperature Oral 97.6 DegF [96.4-99.1 DegF] (12/05/17 1:59 PM) Blood Pressure 118/80 mmHg [90-140/60-90 mmHg] (12/05/17 1:59 PM) Peripheral Pulse 81 bpm Rate [60-100 bpm] (12/05/17 1:59 PM) Weight 77.301 kg (12/05/17 1:59 PM) Body Mass Index 23.77 m2 (12/05/17 1:59 PM) Problem List Condition Effective Dates Status [...] Status NKFA Active NKDA Active Medications No Known Medications Results No data available for this section [...]
--- OUTSIDE RECORDS SUMMARY | 2018-01-02 14:08 | XMS REPORT | Summary of Care ---
Author Author [facility] Organization [facility] Address Unknown Phone Unavailable Encounter DEBBIE Valenzuela(FIN) [id number] Date(s): 08/01/17 - 08/02/17 [place] [address] [facility], [address] [place] [address]- [phone] Vital Signs No data available for this [...]
--- OUTSIDE RECORDS SUMMARY | 2018-01-02 14:08 | XMS REPORT | Summary of Care ---
Author Author [facility] Organization [facility] Address Unknown Phone Unavailable Encounter HQ David_ole(FIN) [id number] Date(s): 09/13/17 - 09/14/17 [facility] [address] [facility], [address] [place] [address]- [phone] Vital Signs No data available for this [...]
--- OUTSIDE RECORDS SUMMARY | 2018-01-02 14:08 | XMS REPORT | Summary of Care ---
Author Author [facility] Organization Unknown Address Unknown Phone Unavailable Care Team Providers Care Road Roller Engineer Name Role Phone GEMA BROWN [place], CIERRA Valencia RP Unavailable Functional Status Functional [...] Name Dates Details Albuterol 90 MCG/ACT AERS , M.A.ActiveAscorbic Acid 500 MG Oral Tablet * Refills: 0 , M.A.ActiveBuPROPion HCl ER (Smoking Det) 150 MG Oral Tablet Extended Release 12 Hour * Refills: 0 , M.A.ActiveDiazePAM 5 MG Oral Tablet * Refills: 0 , M.A.ActiveDicyclomine HCl - 10 MG Oral Capsule TAKE 1 CAPSULE 3 TIMES DAILY. * Refills: 0 , M.A.ActiveEszopiclone 3 MG Oral Tablet TAKE 1 TABLET AT BEDTIME NEEDED FOR SLEEP. * Refills: 0 , M.A.ActiveFluticasone Propionate 50 MCG/ACT Nasal Suspension * Refills: 0 , M.A.ActiveHyoscyamine Sulfate 0.125 MG Oral Tablet Dispersible * Refills: 0 , M.A.ActiveLisinopril 5 MG Oral Tablet TAKE 1 TABLET DAILY. * Refills: 0 , M.A.ActiveSimvastatin 40 MG Oral Tablet TAKE 1 TABLET AT BEDTIME. * Refills: 0 , M.A.Active Allergies and Adverse Reactions Name Dates Details [...] Instructions * Instructions not documented Encounters Appointment; CIERRA RIBEIRO Encounter Diagnosis: Problem not documented On 27-Oct-2016 09:20 Appointment; ÓSCAR CONLEY Encounter Diagnosis: Problem not documented On 15-Oct-2016 09:35 Appointment; ÓSCAR CONLEY Encounter Diagnosis: Problem not documented On 10-Sep-2016 10:00 Appointment; ÓSCAR CONLEY Encounter Diagnosis: Problem not documented On 03-Sep-2016 11:00
--- OUTSIDE RECORDS SUMMARY | 2018-01-02 14:08 | XMS REPORT | Summary of Care ---
Author Author Anabelle Joseph Organization Unknown Address Unknown Phone Unavailable Care Team Providers Care French Professor Name Role Phone Anabelle Joseph Unavailable Unavailable GEMA BROWN [place], CIERRA Valencia RP Unavailable [...] Allergies Status: Active Procedures Procedure Dates Details [N] 2D Echo complete, with Doppler [id number] Ordered:28-Oct-2016 Immunization Name Dates Details Immunizations not documented [...] of Care Planned Observations* Name Dates Details [N] 2D Echo complete, with Doppler [id number] On 01-Dec-2016 Intent Planned Goals not documented Goal Planned Encounters* Appointment; Provider: CIERRA IRBEIRO On 10:00 * Appointment; Provider: KRUPA LAUREANO [...]
--- OUTSIDE RECORDS SUMMARY | 2018-01-02 14:08 | XMS REPORT | Summary of Care ---
Author Author [facility] Organization [facility] Address Unknown Phone Unavailable Encounter DEBBIE Valenzuela(RADHA) [id number] Date(s): 02/07/17 - 02/07/[address] [facility] [address] [place] [address]- Discharge Disposition: Home or Self Care Attending Physician: Carol Vasquez DO Vital Signs No data available for this section Problem List Condition Effective Dates Status Health Status Informant Benign essential Active hypertension(Confirm ed) Chronic Active bronchitis(Confirmed ) Major depression, Active chronic(Confirmed) Claustrophobia(Confi Active rmed) History of penile Active implant(Confirmed) Hypercholesterolemia Active (Confirmed) Impacted cerumen of Active both ears(Confirmed) Irritable bowel Active syndrome(Confirmed) Low back Active pain(Confirmed) Mitral valve Active prolapse(Confirmed) Polyarthralgia(Confi Active rmed) Panic Active attacks(Confirmed) Plantar fasciitis, Active right(Confirmed) Achilles tendon Active tear(Confirmed) Allergies, Adverse Reactions, Alerts Substance Reaction Severity Status NKDA Active Medications No data available for this section Results No data available for this section Immunizations No data available for this section Procedures Procedure Date Related Diagnosis Body Site 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
--- OUTSIDE RECORDS SUMMARY | 2018-01-02 14:08 | XMS REPORT | Summary of Care ---
Author Author Katlin Christianson M.A. [facility] Unknown Address Unknown Phone Unavailable Care Team Providers Care Counterintelligence Agent Name Role Phone ÓSCAR CONLEY M.D. Unavailable Unavailable Functional Status Functional Status Health Issues* Name Dates Details Functional status health issues are not documented Status: Cognitive Status Health Issues* Name Dates Details Cognitive status health issues are not documented Status: Problems Name Dates Details Right elbow pain (719.42, M25.521) Status: Active Lateral epicondylitis of right elbow (726.32, M77.11) Status: Active Medications Name Dates Details Medication not documented Allergies and Adverse Reactions Name Dates Details Allergy history not documented Status: Procedures Procedure Dates Details Procedures not documented Immunization Name Dates Details Immunizations not documented Social History Smoking Status* Unknown if ever smoked Vital Signs Date Test Result Details No Known Vitals to report Results Date Description Value Details Results not documented Plan of Care Planned Observations* Name Dates Details Planned Goals not documented Goal Planned Encounters* Appointment; Provider: ÓSCAR CONLEY On 08-Oct-2016 10:00 Instructions * Instructions not documented Encounters Appointment; ÓSCAR CONLEY Encounter Diagnosis: Problem not documented On 03-Sep-2016 11:00
--- OUTSIDE RECORDS SUMMARY | 2018-01-02 14:08 | XMS REPORT | Summary of Care ---
Author Author [facility] Organization [facility] Address Unknown Phone Unavailable Encounter HQ Nicolas(RADHA) [id number] Date(s): 07/08/17 - 07/08/[address], [address] [place] [address]- [phone] Discharge Disposition: Home or Self Care Attending Physician: Marina López MD Vital Signs Most recent to 1 oldest [Reference Range]: Height 180.34 cm (07/08/17 10:37 AM) Temperature Oral 97.8 DegF [96.4-99.1 DegF] (07/08/17 10:37 AM) Blood Pressure 142/91 mmHg [90-140/60-90 mmHg] *HI* (07/08/17 10:37 AM) Respiratory Rate 20 BRMIN [14-20 BRMIN] (07/08/17 10:37 AM) Peripheral Pulse 91 bpm Rate [60-100 bpm] (07/08/17 10:37 AM) Weight 77.273 kg (07/08/17 10:37 AM) Body Mass Index 23.76 m2 (07/08/17 10:37 AM) Problem List Condition Effective Dates Status Health [...] Substance Reaction Severity Status NKDA Active Medications baclofen 10 mg oral tablet 10 mg=1 tab, PO, TID, PRN muscle spasm, # 270 tab, 0 Refill(s), Pharmacy: [facility] Start Date: 07/08/17 Stop Date: 10/06/17 Status: Ordered buPROPion 150 mg/24 hours (XL) oral tablet, extended release 150 mg=1 tab, PO, TID, # 270 tab, 0 Refill(s), Pharmacy: [facility] Start Date: 07/08/17 Stop Date: 10/06/17 Status: Ordered carvedilol 3.125 mg oral tablet 3.125 mg=1 tab, PO, BID, # 180 tab, 0 Refill(s), Pharmacy: [facility] Start Date: 07/08/17 Stop Date: 10/06/17 Status: Ordered diazepam 5 mg oral tablet 5 mg=1 tab, PO, Q8H, PRN Anxiety, # 40 tab, 2 Refill(s) Start Date: 07/08/17 Stop Date: 07/08/18 Status: Ordered eszopiclone 3 mg oral tablet 3 mg=1 tab, PO, Bedtime, PRN for insomnia, X 90 day, # 90 tab, 0 Refill(s) Start Date: 07/08/17 Stop Date: 10/06/17 Status: Ordered fluticasone nasal 0.05 mg/inh spray 50 microgram=1 spray, NASAL, Daily, # 3 ea, 0 Refill(s), Pharmacy: [facility] Start Date: 07/08/17 Status: Ordered hyoscyamine 0.125 mg oral tablet 0.25 mg=2 tab, PO, TID, PRN spasm, # 270 tab, 0 Refill(s), Pharmacy: [facility] Start Date: 07/08/17 Stop Date: 10/06/17 Status: Ordered lisinopril 5 mg oral tablet 5 mg=1 tab, PO, Daily, # 90 tab, 0 Refill(s), Pharmacy: [facility] Start Date: 07/08/17 Status: Ordered meloxicam 15 mg oral tablet See Instructions, Take 1 tablet by mouth daily as needed for pain, # 90 tab, 0 Refill(s), Pharmacy: [facility] Start Date: 07/08/17 Status: Ordered simvastatin 40 mg oral tablet 40 mg=1 tab, PO, Bedtime, # 90 tab, 0 Refill(s), Pharmacy: [facility] Start Date: 07/08/17 Stop Date: 10/06/17 Status: Ordered tramadol 50 mg oral tablet 50 mg=1 tab, PO, Q4H, # 90 tab, 2 Refill(s) Start Date: 07/08/17 Stop Date: 07/08/18 Status: Ordered Results No data available for this section [...]
--- OUTSIDE RECORDS SUMMARY | 2018-01-02 14:08 | XMS REPORT | Summary of Care ---
Author Author [facility] Organization [facility] Address Unknown Phone Unavailable Encounter HQ Nicolas(RADHA) [id number] Date(s): 09/14/17 - 09/14/17 [place] [address] [facility], [address] [place] [address]- [phone] Discharge Disposition: Home or Self Care Attending Physician: Marina López MD Vital Signs Most recent to 1 oldest [Reference Range]: Height 180.34 cm (09/14/17 3:02 PM) Temperature Oral 97.7 DegF [96.4-99.1 DegF] (09/14/17 3:02 PM) Blood Pressure 149/93 mmHg [90-140/60-90 mmHg] *HI* (09/14/17 3:02 PM) Peripheral Pulse 83 bpm Rate [60-100 bpm] (09/14/17 3:02 PM) Weight 77.443 kg (09/14/17 3:02 PM) Body Mass Index 23.81 m2 (09/14/17 3:02 PM) Problem List Condition Effective Dates Status [...] Severity Status NKFA Active NKDA Active Medications eszopiclone 3 mg oral tablet 3 mg=1 tab, PO, Bedtime, PRN for insomnia, fax to [facility], X 90 day, # 90 tab, 0 Refill(s) Start Date: 09/14/17 Stop Date: 12/13/17 Status: Completed hydrocortisone/neomycin/polymyxin B otic solution 2 drp, RIGHT EAR, QID, X 10 day, # 10 ml, 0 Refill(s), Pharmacy: [facility] [id number] Start Date: 09/14/17 Stop Date: 09/24/17 Status: Completed Results No data available for this section [...]
--- OUTSIDE RECORDS SUMMARY | 2018-01-02 14:08 | XMS REPORT | Summary of Care ---
Author Author [facility] Organization [facility] Address Unknown Phone Unavailable Encounter DEBBIE Valenzuela(FIN) [id number] Date(s): 08/01/17 - 08/02/17 [place] [address] [facility], [address] [place], [place] [address]- [phone] Vital Signs No data available for this [...]
--- OUTSIDE RECORDS SUMMARY | 2018-01-02 14:08 | XMS REPORT | Summary of Care ---
Author Author Danielle Valladares M.A. Unknown Address Unknown Phone Unavailable Care Team Providers Care Scenic Designer Name Role Phone CIERRA RIBEIRO M.D. Unavailable Unavailable Functional Status Functional Status Health Issues* Name Dates Details Functional status health issues are not documented Status: Cognitive Status Health Issues* Name Dates Details Cognitive status health issues are not documented Status: Problems Name Dates Details Right elbow pain (719.42, M25.521) Status: Active Lateral epicondylitis of right elbow (726.32, M77.11) Status: Active Medications Name Dates Details Albuterol [...] Planned Encounters* Appointment; Provider: ÓSCAR CONLEY On 12-Nov-2016 10:30 Instructions * Instructions not documented Encounters Appointment; ÓSCAR CONLEY Encounter Diagnosis: Problem not documented On 15-Oct-2016 09:35 Appointment; ÓCSAR CONLEY Encounter Diagnosis: Problem not documented On 10-Sep-2016 10:00 Appointment; ÓSCAR CONLEY Encounter Diagnosis: Problem not documented On 03-Sep-2016 11:00
--- OUTSIDE RECORDS SUMMARY | 2018-01-02 14:08 | XMS REPORT | Summary of Care ---
Author Author [facility] Organization [facility] Address Unknown Phone Unavailable Encounter HQ Nicolas(FIN) [id number] Date(s): 09/09/17 - 09/09/17 [place] [address] [facility], [address] [place] [address]- [phone] Discharge Disposition: Home or Self Care Attending Physician: Marina López MD Vital Signs Most recent to 1 oldest [Reference Range]: Height 180.34 cm (09/09/17 10:27 AM) Temperature Oral 98.0 DegF [96.4-99.1 DegF] (09/09/17 10:27 AM) Blood Pressure 121/82 mmHg [90-140/60-90 mmHg] (09/09/17 10:27 AM) Peripheral Pulse 74 bpm Rate [60-100 bpm] (09/09/17 10:27 AM) Weight 75.966 kg (09/09/17 10:27 AM) Body Mass Index 23.36 m2 (09/09/17 10:27 AM) Problem List Condition Effective Dates Status [...] Severity Status NKFA Active NKDA Active Medications azelastine-fluticasone 137 mcg-50 mcg/inh nasal spray 2 spray, NASAL, BID, X 30 day, # 23 gm, 1 Refill(s), Pharmacy: [facility] Start Date: 09/09/17 Stop Date: 11/08/17 Status: Completed Results No data available for this section Immunizations Given and Recorded Vaccine Date Status Refusal Reason Hx influenza vaccine-unspecified 03/25/17 Recorded Procedures Procedure Date Related Diagnosis Body Site Status Removal impacted cerumen using 09/09/17 Completed irrigation/lavage, unilateral Implantation of penile prosthesis 06/2016 Completed Release [...]
--- OUTSIDE RECORDS SUMMARY | 2018-01-02 14:08 | XMS REPORT | Summary of Care ---
Author Author [facility] Organization [facility] Address Unknown Phone Unavailable Encounter DEBBIE Valenzuela(RADHA) [id number] Date(s): 07/28/17 - 07/28/[address] [place] [address]- [phone] Discharge Disposition: Home or Self Care Attending Physician: Marina López MD Vital Signs Most recent to 1 oldest [Reference Range]: Height 180.34 cm (07/28/17 2:09 PM) Temperature Oral 97.4 DegF [96.4-99.1 DegF] (07/28/17 2:09 PM) Blood Pressure 124/88 mmHg [90-140/60-90 mmHg] (07/28/17 2:09 PM) Peripheral Pulse 79 bpm Rate [60-100 bpm] (07/28/17 2:09 PM) Weight 75.909 kg (07/28/17 2:09 PM) Body Mass Index 23.34 m2 (07/28/17 2:09 PM) Problem List Condition Effective Dates Status [...] Substance Reaction Severity Status NKDA Active Medications Cipro 500 mg oral tablet 500 mg=1 tab, PO, Q12H, 0 Refill(s) Start Date: 07/28/17 Status: Ordered metroNIDAZOLE 500 mg oral tablet 500 mg=1 tab, PO, TID, 0 Refill(s) Start Date: 07/28/17 Status: Ordered Results No data available for [...]
--- OUTSIDE RECORDS SUMMARY | 2018-01-02 14:08 | XMS REPORT | Summary of Care ---
Author Author [facility] Organization [facility] Address Unknown Phone Unavailable Encounter DEBBIE Valenzuela(RADHA) [id number] Date(s): 07/23/16 - 07/24/16 [facility] [address] [place] [address]- Discharge Disposition: Home or Self Care Attending Physician: Luis Norris MD Admitting Physician: Luis Norris MD Vital Signs 1 2 3 Most recent to oldest [Reference Range]: 198.12 cm (07/24/16 9:00 AM) 180.34 cm (07/24/16 12:47 AM) 180.34 cm (07/23/16 8:36 PM) Height 97.6 DegF (07/24/16 8:00 AM) 97.9 DegF (07/24/16 5:45 AM) 98 DegF (07/24/16 12:56 AM) Temperature Oral [96.4-99.1 DegF] 129/79 mmHg (07/24/16 8:00 AM) 114/64 mmHg (07/24/16 5:45 AM) 133/84 mmHg (07/24/16 12:56 AM) Blood Pressure [90-140/60-90 mmHg] 16 BRMIN (07/24/16 8:00 AM) 16 BRMIN (07/24/16 5:45 AM) 18 BRMIN (07/24/16 12:56 AM) Respiratory Rate [14-20 BRMIN] 87 bpm (07/24/16 8:00 AM) 81 bpm (07/24/16 5:45 AM) 86 bpm (07/24/16 12:56 AM) Peripheral Pulse Rate [60-100 bpm] 75 kg (07/24/16 12:47 AM) 81.818 kg (07/23/16 8:36 PM) Weight 23.06 m2 (07/24/16 12:47 AM) 25.16 m2 (07/23/16 8:36 PM) Body Mass Index Problem List Condition Effective Dates Status Health Status Informant Benign essential Active hypertension(Confirm ed) Chronic Active bronchitis(Confirmed ) Major depression, Active chronic(Confirmed) Hypercholesteremia(C Resolved onfirmed) Hypercholesterolemia Active (Confirmed) Impacted cerumen of Active both ears(Confirmed) Irritable bowel Active syndrome(Confirmed) Mitral valve Active prolapse(Confirmed) Mitral valve Active prolapse(Confirmed) Polyarthralgia(Confi Active rmed) Panic Active attacks(Confirmed) Plantar fasciitis, Active right(Confirmed) Achilles tendon Active tear(Confirmed) Allergies, Adverse Reactions, Alerts Substance Reaction Severity Status NKDA Active Medications aspirin 81 mg tablet, enteric coated 81 mg, 1 tab, Route: PO, Drug form: ECTAB, Daily, Dosing Weight 81.818, kg, Start date: 07/24/16 9:00:00 PURCHASING ANALYST, Duration: 30 day, Stop date: 08/22/16 9:00:00 PURCHASING ANALYST Start Date: 07/24/16 Stop Date: 07/24/16 Status: Discontinued aspirin 81 mg tablet, enteric coated 81 mg=1 tab, PO, Daily, 0 Refill(s) Start Date: 07/24/16 Status: Ordered Ativan 0.5 mg, 0.25 mL, Route: IV, Drug form: INJ, ONCE, Dosing Weight 75, kg, Start date: 07/24/16 2:40:00 PURCHASING ANALYST, Stop date: 07/24/16 2:40:00 PURCHASING ANALYST Notes: (Same as: Ativan) Start Date: 07/24/16 Stop Date: 07/24/16 Status: Completed hydrALAZINE 10 mg, 0.5 mL, Route: IV, Drug form: INJ, Q4H, Dosing Weight 81.818, kg, PRN Hypertension, Priority: Routine, Start date: 07/24/16 0:23:00 PURCHASING ANALYST, Duration: 30 day, Stop date: 08/23/16 0:22:00 PURCHASING ANALYST Start Date: 07/24/16 Stop Date: 07/24/16 Status: Discontinued Lunesta 2 mg, Route: PO, Bedtime, Dosing Weight 81.818, kg, Start date: 07/24/16 21:00: 00 PURCHASING ANALYST, Duration: 30 day, Stop date: 08/22/16 21:00:00 PURCHASING ANALYST Start Date: 07/24/16 Stop Date: 07/24/16 Status: Canceled morphine Sulfate 2 mg, 1 mL, Route: IVP, Drug form: INJ, Q15Min, Dosing Weight 81.818, kg, PRN Chest Pain, Start date: 07/24/16 0:13:00 PURCHASING ANALYST, Duration: 2 doses or times, Stop date: Limited # of times Notes: (Same as:MORPhine Sulfate) Start Date: 07/24/16 Stop Date: 07/24/16 Status: Discontinued nitroglycerin SL Tab 0.4 mg, 1 tab, Route: SL, Drug form: TAB, Q5Min, Dosing Weight 81.818, kg, PRN Chest Pain, Start date: 07/24/16 0:13:00 PURCHASING ANALYST, Duration: 3 doses or times, Stop date: Limited # of times Start Date: 07/24/16 Stop Date: 07/24/16 Status: Discontinued ondansetron 4 mg, Route: PO, Drug form: TAB, Q8H, Dosing Weight 81.818, kg, PRN Nausea & Vomiting, Start date: 07/24/16 0:13:00 PURCHASING ANALYST, Duration: 30 day, Stop date: 0:12:00 PURCHASING ANALYST Start Date: 07/24/16 Stop Date: 07/24/16 Status: Discontinued Saline Flush 0.9% 10 ml, Route: IVP, Drug Form: INJ, Dosing Weight 81.818, kg, Q12H, Start date: 07/24/16 9:00:00 PURCHASING ANALYST, Duration: 30 day, Stop date: 08/22/16 21:00:00 PURCHASING ANALYST Notes: (Same as: BD Posiflush) Start Date: 07/24/16 Stop Date: 07/24/16 Status: Discontinued Saline Flush 0.9% 10 ml, Route: IVP, Drug Form: INJ, Dosing Weight 81.818, kg, PRN, PRN Line Flush , Start date: 07/24/16 0:13:00 PURCHASING ANALYST, Duration: 30 day, Stop date: 08/23/16 0:12: 00 PURCHASING ANALYST Start Date: 07/24/16 Stop Date: 07/24/16 Status: Discontinued Saline Flush 0.9% 10 mL, Route: IVP, Drug Form: INJ, Dosing Weight 81.818, kg, PRN, PRN Line Flush , Start date: 07/23/16 20:49:00 PURCHASING ANALYST, Duration: 30 day, Stop date: 08/22/16 20:48 :00 PURCHASING ANALYST Notes: (Same as: BD Posiflush) Start Date: 07/23/16 Stop Date: 07/24/16 Status: Discontinued trazodone 50 mg oral tablet 50 mg, 1 tab, Route: PO, Drug form: TAB, Bedtime, Dosing Weight 75, kg, Start date: 07/24/16 21:00:00 PURCHASING ANALYST, Duration: 30 day, Stop date: 08/22/16 21:00:00 PURCHASING ANALYST Start Date: 07/24/16 Stop Date: 07/24/16 Status: Canceled Valium 5 mg, Route: PO, ONCE, Dosing Weight 81.818, kg, Priority: STAT, Start date: 22:51:00 PURCHASING ANALYST, Stop date: 07/23/16 22:51:00 PURCHASING ANALYST Start Date: 07/23/16 Stop Date: 07/23/16 Status: Completed Zofran 4 mg, 2 mL, Route: IVP, Drug form: INJ, Q8H, Dosing Weight 81.818, kg, PRN Nausea, Start date: 07/24/16 0:22:00 PURCHASING ANALYST, Duration: 30 day, Stop date: 08/23/16 0:21:00 PURCHASING ANALYST Notes: (Same as: Zofran) MEDICATION WASTE Product Size: 4 mgProduct Wasted: ___ mg Start Date: 07/24/16 Stop Date: 07/24/16 Status: Discontinued Results ELECTROLYTES 1 2 3 Most recent to oldest [Reference Range]: 140 mEq/L (07/23/16 9:02 PM) Sodium Lvl [135-145 mEq/L] 4.0 mEq/L (07/23/16 9:02 PM) Potassium Lvl [3.5-5.1 mEq/L] 105 mEq/L (07/23/16 9:02 PM) Chloride Lvl [95-109 mEq/L] 28 mEq/L (07/23/16 9:02 PM) CO2 [24-32 mEq/L] 11.0 mEq/L (07/23/16 9:02 PM) AGAP [10.0-20.0 mEq/L] CHEM PANEL 1 2 3 Most recent to oldest [Reference Range]: 1.10 mg/dL (07/23/16 9:02 PM) Creatinine Lvl [0.50-1.40 mg/dL] 68 mL/min/1.73m2 1 *NA* (07/23/16 9:02 PM) eGFR 16 mg/dL (07/23/16 9:02 PM) BUN [7-22 mg/dL] 15 (07/23/16 9:02 PM) B/C Ratio [6-25] 116 mg/dL *HI* (07/23/16 9:02 PM) Glucose Lvl [70-99 mg/dL] 7.1 g/dL (07/23/16 9:02 PM) Total Protein [6.4-8.4 g/dL] 3.8 g/dL (07/23/16 9:02 PM) Albumin Lvl [3.5-5.0 g/dL] 3.3 g/dL (07/23/16 9:02 PM) Globulin [2.7-4.2 g/dL] 1.2 (07/23/16 9:02 PM) A/G Ratio [0.7-1.6] 9.0 mg/dL (07/23/16 9:02 PM) Calcium Lvl [8.5-10.5 mg/dL] 53 unit/L (07/23/16 9:02 PM) ALT [0-65 unit/L] 34 unit/L (07/23/16 9:02 PM) AST [0-37 unit/L] 72 unit/L (07/23/16 9:02 PM) Alk Phos [39-136 unit/L] 0.4 mg/dL (07/23/16 9:02 PM) Bili Total [0.2-1.3 mg/dL] 295 unit/L (07/23/16 9:02 PM) Lipase Lvl [73-393 unit/L] 1Result Comment: The eGFR is calculated using the CKD-EPI formula. In most young , healthy individuals the eGFR will be >90 mL/min/1.73m2. The eGFR declines with age. An eGFR of 60-89 may be normal in some populations, particularly the elderly, for whom the CKD-EPI formula has not been extensively validated. Use [...] should be multiplied by the estimated BMI. CARDIAC ENZYMES 1 2 3 Most recent to oldest [Reference Range]: 51 unit/L (07/24/16 6:00 AM) 64 unit/L (07/24/16 1:11 AM) 59 unit/L (07/23/16 9:02 PM) Total CK [12-191 unit/L] <0.5 ng/mL (07/23/16 9:02 PM) CK MB [0.5-3.6 ng/mL] <0.8 (07/23/16 9:02 PM) CK MB Index [0.0-2.5] <0.02 ng/mL (07/24/16 6:00 AM) <0.02 ng/mL (07/24/16 1:11 AM) <0.02 ng/mL (07/23/16 9:02 PM) Troponin-I [0.00-0.40 ng/mL] 14 pg/mL (07/23/16 9:02 PM) BNP [<=100 pg/mL] LIPIDS 1 2 3 Most recent to oldest [Reference Range]: 3.33 *LOW* (07/24/16 6:00 AM) CHD Risk [4.00-7.30] 170 mg/dL (07/24/16 6:00 AM) Chol [<=199 mg/dL] 132 mg/dL (07/24/16 6:00 AM) Trig [<=149 mg/dL] 51 mg/dL *LOW* (07/24/16 6:00 AM) HDL [>=61 mg/dL] 93 mg/dL (07/24/16 6:00 AM) LDL (Calculated) [<=99 mg/dL] 26 *NA* (07/24/16 6:00 AM) VLDL URINE AND STOOL 1 2 3 Most recent to oldest [Reference Range]: Clear (07/23/16 9:02 PM) UA Turbidity [Clear] Colorless *NA* (07/23/16 9:02 PM) UA Color >=9.0 *ABN* (07/23/16 9:02 PM) UA pH [5.0-8.0] 1.006 (07/23/16 9:02 PM) UA Spec Grav [<=1.030] Negative mg/dL *NA* (07/23/16 9:02 PM) UA Glucose [Negative mg/dL] Negative (07/23/16 9:02 PM) UA Blood [Negative] Negative mg/dL *NA* (07/23/16 9:02 PM) UA Ketones [Negative mg/dL] Negative mg/dL (07/23/16 9:02 PM) UA Protein [Negative mg/dL] <=1.0 mg/dL *NA* (07/23/16 9:02 PM) UA Urobilinogen [0.1-1.0 mg/dL] Negative *NA* (07/23/16 9:02 PM) UA Bili [Negative] Negative (07/23/16 9:02 PM) UA Leuk Est [Negative] Negative (07/23/16 9:02 PM) UA Nitrite [Negative] Occasional /LPF *NA* (07/23/16 9:02 PM) UA Sq Epi [Few /LPF] HEMATOLOGY 1 2 3 Most recent to oldest [Reference Range]: 5.3 K/CMM (07/23/16 9:02 PM) WBC [3.7-10.4 K/CMM] 5.06 M/CMM (07/23/16 9:02 PM) RBC [4.70-6.10 M/CMM] 15.4 g/dL (07/23/16 9:02 PM) Hgb [14.0-18.0 g/dL] 45.4 % (07/23/16 9:02 PM) Hct [42.0-54.0 %] 89.7 fL (07/23/16 9:02 PM) MCV [80.0-94.0 fL] 30.4 pg (07/23/16 9:02 PM) MCH [27.0-31.0 pg] 33.9 g/dL (07/23/16 9:02 PM) MCHC [32.0-36.0 g/dL] 13.0 % (07/23/16 9:02 PM) RDW [11.5-14.5 %] 213 K/CMM (07/23/16 9:02 PM) Platelet [133-450 K/CMM] 8.1 fL (07/23/16 9:02 PM) MPV [7.4-10.4 fL] 51.4 % (07/23/16 9:02 PM) Segs [45.0-75.0 %] 35.2 % (07/23/16 9:02 PM) Lymphocytes [20.0-40.0 %] 9.8 % (07/23/16 9:02 PM) Monocytes [2.0-12.0 %] 2.3 % (07/23/16 9:02 PM) Eosinophils [0.0-4.0 %] 1.3 % *HI* (07/23/16 9:02 PM) Basophils [0.0-1.0 %] 2.7 K/CMM (07/23/16 9:02 PM) Segs-Bands # [1.5-8.1 K/CMM] 1.9 K/CMM (07/23/16 9:02 PM) Lymphocytes # [1.0-5.5 K/CMM] 0.5 K/CMM (07/23/16 9:02 PM) Monocytes # [0.0-0.8 K/CMM] 0.1 K/CMM (07/23/16 9:02 PM) Eosinophils # [0.0-0.5 K/CMM] 0.1 K/CMM (07/23/16 9:02 PM) Basophils # [0.0-0.2 K/CMM] 12.8 seconds (07/23/16 9:02 PM) PT [12.0-14.7 seconds] 0.94 (07/23/16 9:02 PM) INR [0.85-1.17] 25.3 seconds (07/23/16 9:02 PM) PTT [22.9-35.8 seconds] Immunizations No data available for this section Procedures Procedure Date Related Diagnosis Body Site Release of plantar fascia1, 2 11/10/07 Implantation of penile prosthesis 1991 Hernia repair Operation for impingement syndrome of shoulder region3 1right foot 2Excision of possible overabundance of distal plantar medial Pacinian corpuscles (1 cm), plantar medial foot 3both shoulders (2002 and 2003) Social History Social History Type Response Substance Abuse Use: None. Exercise 1 Employment/School Status: Retired. Alcohol Current, Type Wine. Frequency: 1-2 times per week. Smoking Status Never smoker; Exposure to Tobacco Smoke None; Cigarette Smoking Last 365 Days No; Reg Smoking Cessation Counseling Yes 1none Assessment and Plan Extracted from: Title: Consultation Hospitalist Author: Sherron Thomas MD Date: 07/24/16 Impression and Plan Chest pain possibly noncardiac Hyperlipidemia Anxiety Plan Admit as observation with telemetry chest pain currently resolved PReliminary EKG stable Trend cardiac enzymes Cardiology primary A.m. labs Med rec once available Patient requests Lunesta to aid with insomnia DVT prophylaxis low-risk
--- OUTSIDE RECORDS SUMMARY | 2018-01-02 14:08 | XMS REPORT | Summary of Care ---
Author Author [facility] Organization [facility] Address Unknown Phone Unavailable Encounter DEBBIE Valenzuela(FIN) [id number] Date(s): 08/18/17 - 08/19/17 [place] [address] [facility], [address] [place] [address]- [phone] Vital Signs No data available for this [...] Severity Status NKFA Active NKDA Active Medications metroNIDAZOLE 500 mg oral tablet 500 mg=1 tab, PO, TID, X 7 day, # 21 tab, 0 Refill(s), Pharmacy: [id number] Start Date: 08/19/17 Stop Date: 08/26/17 Status: Completed Results No data available for [...]
--- OUTSIDE RECORDS SUMMARY | 2018-01-02 14:09 | XMS REPORT | Summary of Care ---
Author Author [facility] Organization [facility] Address [address], [facility] [address] [place] [address] Phone Care Team Providers Care Library Science Instructor Name Role Phone DAHIANA Banks, PHIL Unavailable Unavailable GEMA CABRAL, CIERRA Valencia Unavailable Unavailable Unavailable Unavailable Functional [...] MG Oral Tablet Extended Release 12 Hour TAKE 3 TABLET DAILY * Refills: 0 Active DiazePAM 5 MG Oral Tablet * Refills: 0 Active Dicyclomine HCl - 10 MG Oral Capsule TAKE 1 CAPSULE 3 TIMES DAILY PRN * Refills: 0 Active Eszopiclone 3 MG Oral Tablet TAKE 1 TABLET AT BEDTIME NEEDED FOR SLEEP. * Refills: 0 Active Fluticasone Propionate 50 MCG/ACT Nasal Suspension * Refills: 0 Active Hyoscyamine Sulfate 0.125 MG Oral Tablet Disintegrating * Refills: 0 Active Lisinopril 5 MG Oral Tablet TAKE 1/2 TABLET DAILY. * Quantity: 1 Refills: 0 DAYAH M.D., PHIL Active 30 Tablet Pack Simvastatin 40 MG Oral Tablet TAKE 1 TABLET AT BEDTIME. * Refills: 0 Active Carvedilol 3.125 MG Oral Tablet TAKE 1 TABLET TWICE DAILY WITH MEALS. * Quantity: 60 Refills: 3 DAYAH M.D., PHIL * Start : 08-Dec-2016 Active Allergies and Adverse Reactions Name Dates Details No Known Drug Allergies (Allergy) Status: Active Procedures Procedure Dates Details Procedures not documented Immunization Name Dates Details Immunizations not documented Social History Name Dates Details - Status: Name Dates Details Never smoker Vital Signs Date Test Result Details No Known Vitals to report Results Date Description Value Details Results not documented Plan of Care Name Dates Details Planned Observations Planned Goals not documented Planned Encounters Appointment; CIERRA RIBEIRO M.D. On: 15-Jun-2017 10:10 Instructions Name Dates Details Instructions not documented Encounters Appointment; ÓSCAR CONLEY M.D. Encounter Diagnosis: Problem not documented On: 03-Sep-2016 11:00 Appointment; ÓSCAR CONLEY M.D. Encounter Diagnosis: Problem not documented On: 10-Sep-2016 10:00 Appointment; ÓSCAR CONLEY M.D. Encounter Diagnosis: Problem not documented On: 15-Oct-2016 9:35 Appointment; CIERRA RIBEIRO M.D. Encounter Diagnosis: Problem not documented On: 27-Oct-2016 9:20 Appointment; KRUPA LAUREANO Encounter Diagnosis: Problem not documented On: 03-Dec-2016 11:00 Appointment; ÓSCAR CONLEY M.D. Encounter Diagnosis: Problem not documented On: 07-Dec-2016 10:30 Appointment; CIERRA RIBEIRO M.D. Encounter Diagnosis: Problem not documented On: 08-Dec-2016 9:40
--- OUTSIDE RECORDS SUMMARY | 2018-01-02 14:09 | XMS REPORT | Summary of Care ---
Author Author [facility] Organization [facility] Address [address], [facility] [address] [place] [address] Phone Care Team Providers Care Chief Cook Name Role Phone DAHIANA Banks, PHIL Unavailable [...]
--- OUTSIDE RECORDS SUMMARY | 2018-01-02 14:09 | XMS REPORT | Summary of Care ---
Author Author Brooklyn Mcintosh R.N. Unknown Address [facility] Phone Unavailable Care Team Providers Care Modeling Manager Name Role Phone GEMA Banks, CIERRA Gill Unavailable DAHIANA Banks, PHIL Unavailable Unavailable GEMA BROWN MD, CIERRA Valencia Unavailable Unavailable Unavailable Unavailable Functional [...] Details Planned Observations Planned Goals not documented Instructions Name Dates Details Instructions not documented [...] Diagnosis: Problem not documented On: 08-Dec-2016 9:40 Appointment; CIERRA RIBEIRO M.D. Encounter Diagnosis: Problem not documented On: 15-Jun-2017 10:10
--- OUTSIDE RECORDS SUMMARY | 2018-01-02 14:09 | XMS REPORT | Summary of Care ---
Author Author [facility] Organization [facility] Address [address] [facility] [address], [facility] [address] [place] [address] Phone Care Team Providers Care Gelatin Dynamite Packing Operator Name Role Phone DAHIANA Banks, PHIL Unavailable [...] Oral Tablet Disintegrating * Refills: 0 Active Simvastatin 40 MG Oral Tablet TAKE 1 TABLET AT BEDTIME. * Refills: 0 Active Carvedilol 3.125 MG Oral Tablet TAKE 1 TABLET TWICE DAILY WITH MEALS. * Quantity: 60 Refills: 3 DAHIANA Levine.Kyree., PHIL * Start : 08-Dec-2016 Active Lisinopril 5 MG Oral Tablet TAKE 1/2 TABLET DAILY. * Quantity: 1 Refills: 0 DAHIANA Banks, PHIL Active 30 Tablet Pack Allergies and Adverse Reactions Name Dates Details [...] Planned Goals not documented Planned Encounters Appointment; HITESH ZAPATA M.D. On: 07-Mar-2017 14:00 Appointment; CIERRA RIBEIRO M.D. On: 15-Jun-2017 10:10 [...]
--- OUTSIDE RECORDS SUMMARY | 2018-01-02 14:09 | XMS REPORT | Summary of Care ---
Author Author Arnaldo Blank, Brooklyn Lee Unknown Address [facility] Phone Unavailable Care Team Providers Care Cattery Operator Name Role Phone GEMA Banks, CIERRA Unavailable Unavailable [facility], ROIPROVIDER Unavailable Unavailable GEMA BROWN [place], CIERRA Valencia Unavailable Unavailable Unavailable Unavailable Functional [...] Details [N] 2D Echo complete, with Doppler 30697 Date: 28-Oct-2016 Immunization Name Dates Details Immunizations [...] Planned Goals not documented Planned Encounters Appointment; KRUPA LAUREANO On: 01-Dec-2016 10:00 Appointment; ÓSCAR CONLEY M.D. On: 07-Dec-2016 10:30 Appointment; CIERRA RIBEIRO M.D. On: 29-Dec-2016 10:00 Instructions Name Dates Details Instructions not documented Encounters Appointment; ÓSCAR CONLEY M.D. Encounter Diagnosis: Problem not documented On: 03-Sep-2016 11:00 Appointment; ÓSCAR CONLEY M.D. Encounter Diagnosis: Problem not documented On: 10-Sep-2016 10:00 Appointment; ÓSCAR CONLEY M.D. Encounter Diagnosis: Problem not documented On: 15-Oct-2016 9:35 Appointment; CIERRA RIBEIRO M.D. Encounter Diagnosis: Problem not documented On: 27-Oct-2016 9:20
--- OUTSIDE RECORDS SUMMARY | 2018-01-02 14:09 | XMS REPORT | Summary of Care ---
Author Author CIERRA RIBEIRO M.D. Organization Unknown Address Unknown Phone Unavailable Care Team Providers Care Institutional Aide Name Role Phone CIERRA RIBEIRO M.D. Unavailable Unavailable GEMA BROWN [place], CIERRA Valencia Unavailable Unavailable Unavailable Unavailable Functional [...] Details [N] 2D Echo complete, with Doppler [address]73 Date: 28-Oct-2016 Immunization Name Dates Details Immunizations [...]
--- OUTSIDE RECORDS SUMMARY | 2018-01-02 14:09 | XMS REPORT | Summary of Care ---
Author Author Sandra Cerna Unknown Address Unknown Phone Unavailable Care Team Providers Care Fuse Maker Name Role Phone GEMA Banks, CIERRA Unavailable Unavailable KRUPA LAUREANO Unavailable Unavailable GEMA BROWN UTCIERRA Unavailable Unavailable Unavailable Unavailable Functional Status Name [...] Planned Encounters Appointment; ÓSCAR CONLEY M.D. On: 07-Dec-2016 10:30 [...]
--- OUTSIDE RECORDS SUMMARY | 2018-01-02 14:09 | XMS REPORT | Summary of Care ---
Author Author GEMA Banks, CIERRA Lee Unknown Address Unknown Phone Unavailable Care Team Providers Care Police Chief Deputy Name Role Phone CIERRA RIBEIRO M.D. Unavailable Unavailable DAHIANA Banks, PHIL Unavailable Unavailable GEMA BROWN [place], CIERRA Valencia Unavailable Unavailable Unavailable Unavailable Functional [...] smoker Vital Signs Date Test Result Details [id number] BP Systolic 138 mm[Hg] Status: Comments: Location: RUE; Position: Sitting BP Diastolic 87 mm[Hg] Status: Comments: Location: RUE; Position: Sitting Height 70 in Status: Weight 167.125 lb Status: Body Mass Index Calculated 23.98 kg/m2 Status: Body Surface Area Calculated 1.93 m2 Status: Heart Rate 105 /min Status: Comments: Location: R Radial; Physical Findings 36 Status: Comments: Waist Circumference Results Date Description Value Details Results not documented Plan of Care Name Dates Details Planned Observations Planned Goals not documented Planned Encounters Appointment; CIERRA RIBEIRO M.D. On: 15-Jun-2017 10:10 Interventions Provided Medication Changes* Carvedilol 3.125 MG Oral Tablet - Renew * Lisinopril 5 MG Oral Tablet - Renew with Changes Plan* 70 y/o w/ PMH of HTN, HLD, and severe MR presents for evaluation of his MR. * 1.Mitral regurgitation- * At this current time Mr. Martinez is minimally active and thus doesn't have significant exertional symptoms, repeat echocardiogram demonstrate an improvement in his MR to moderate, after initiation of optimal medical therapy. On exam he is euvolemic with no evidence of HF. His JVD is normal and there is no lower extremity edema. At this current time we will continue to optimize his medical regimen and defer treatment with a MitraClip. * Discontinue metoprolol and start Coreg 3.125 mg BID * Mr. Martinez has been asked to return to clinic to monitor his clinic status on this new regimen. Instructions Name Dates Details Instructions not documented [...]
--- OUTSIDE RECORDS SUMMARY | 2018-01-02 14:09 | XMS REPORT | Summary of Care ---
Author Author [facility] Organization [facility] Address [address] [facility], [facility] [address] [place] [address] Phone Care Team Providers Care Health Concierge Name Role Phone DAHIANA Banks, PHIL Unavailable Unavailable GEMA BROWN [place], CIERRA Valencia Unavailable Unavailable Unavailable Unavailable Functional [...] Details Instructions not documented Encounters Appointment; ÓSCAR OCNLEY M.D. Encounter Diagnosis: Problem not documented On: [...]
--- OUTSIDE RECORDS SUMMARY | 2018-01-02 14:09 | XMS REPORT ---
Author Author [facility] Address Unknown Phone Unavailable Care Team Providers Care Compliance Professional Name Role Phone Unavailable Unavailable Problems This patient has no known problems. Allergies, Adverse Reactions, Alerts This patient has no known allergies or adverse reactions. Medications This patient has no known medications. Results Test Description Test Time Test Comments Text Results Atomic Results Result Comments ARTANIYAINSPECTOR POISING IN OR/30 MINUTE INCREMENTS 2017-05-06 11:51:00 Reason for exam:- >bilateral Lumbar transforaminal epidural injection L5-S1 FINAL REPORT Nondiagnostic exam. Radiology provided fluoroscopy for epidural injection performed by Dr. Valdez. Neither radiologist presence nor interpretation were requested. Please refer to the operative report for further information. Fluoroscopy time was 0.5 minutes. Total # of images: 3 Signed: Shen Campos MDReport Verified Date/Time: 05/06/2017 11:51:48 Reading Location: [address] Radiology Reading Room
[2018-01-02] MEDS ORDERED: ASPIRIN 81 MG CHEW TAB PO ONE ×2 (14:30→16:00)
[2018-01-02 14:43] LABS: BASOPHILS # (AUTO) 0.1 (0.0-0.1); BASOPHILS % 1.1 % (0.0-1.0); EOSINOPHILS # (AUTO) 0.4 (0.0-0.4); EOSINOPHILS % 7.9 % (0.0-6.0); HEMATOCRIT 45.6 % (38.2-49.6); HEMOGLOBIN 15.7 g/dL (14.0-18.0); LYMPHOCYTES # (AUTO) 2.5 (1.0-3.2); LYMPHOCYTES % 46.7 % (18.0-39.1); MEAN CORPUSCULAR HEMOGLOBIN 30.5 pg (28-32); MEAN CORPUSCULAR HGB CONC 34.4 g/dL (31-35); MEAN CORPUSCULAR VOLUME 88.7 fL (81-99); MONOCYTES # (AUTO) 0.5 (0.2-0.8); MONOCYTES % 9.4 % (4.4-11.3); NEUTROPHILS # (AUTO) 1.8 (2.1-6.9); NEUTROPHILS % 34.7 % (38.7-80.0); PLATELET COUNT 180 x10e3/uL (140-360); RED BLOOD COUNT 5.14 x10e6/uL (4.3-5.7); RED CELL DISTRIBUTION WIDTH 12.1 % (11.7-14.4)
[2018-01-02 14:51] LABS: INR 1.06
[2018-01-02 14:59] LABS: ALANINE AMINOTRANSFERASE 23 IU/L (0-55); ALBUMIN 4.3 g/dL (3.5-5.0); ALBUMIN/GLOBULIN RATIO 1.5 (0.8-2.0); ALKALINE PHOSPHATASE 50 IU/L (40-150); ANION GAP 11.9 mmol/L (8-16); BLOOD UREA NITROGEN 18 mg/dL (7-26); BUN/CREATININE RATIO 16 (6-25); CALCIUM 9.7 mg/dL (8.4-10.2); CARBON DIOXIDE 28 mmol/L (22-29); CHLORIDE 104 mmol/L (98-107); CREATINE KINASE 64 IU/L (30-200); CREATININE, SERUM 1.13 mg/dL (0.72-1.25); EST GLOMERULAR FILTRATION RATE > 60 ML/MIN (60-); GLUCOSE 112 mg/dL (74-118); POTASSIUM 3.9 mmol/L (3.5-5.1); SODIUM 140 mmol/L (136-145)
--- NOTE | 2018-01-02 15:03 | Diagnostic Imaging Report ---
PROCEDURE:CHEST 2 VIEWS TECHNIQUE:PA and lateral chest totaling 2 radiographs INDICATION:Chest pressure COMPARISON:None. FINDINGS: Lungs are clear and symmetrically inflated. No pleural effusions. Normal heart size, mediastinal contour, and pulmonary vasculature. Intact skeleton. CONCLUSION: Normal chest. Dictated by: Kale Becerra M.D. on 01/02/2018 at 15:06 Electronically approved by: Kale Becerra M.D. on 01/02/2018 at 15:06
[2018-01-02] MEDS ORDERED: SODIUM CHLORIDE FLUSH 10 ML SYR INJ PRN (16:00)
--- OUTSIDE RECORDS SUMMARY | 2018-01-02 16:00 | XMS REPORT | Clinical Summary ---
Author Author [facility] Address Unknown Phone Unavailable Care Team Providers Care Valve Tester Name Role Phone PCP Unavailable Allergies Active [...] Not on file Implants Implanted Type Area Tobacco Sampler Device Expiration Model / Identifier Date Serial / Lot Kit Asm Titan Pnle Imp [id number] - Urology N/A: Penis COLOPLAST 11/01 [id number] A/S:COLOPLAST / Implanted: Qty: 1 on 06/29/2016 by / Santiago Griffin MD [id number] [place] Titan Cl 125cc [id number] - Urology N/A: COLOPLAST 11/22/2020 [id number] / [id number] Abdomen A/S:COLOPLAST / Implanted: Qty: 1 on 06/29/2016 by [id number] Santiago Griffin MD Titan Cylinders 20cm Urology N/A: Penis [employer]LAST [employer]. 08/10/2020 [id number] / Implanted: Qty: 1 on 06/29/2016 by / Santiago Griffin MD [id number] Procedures Procedure Name Priority Date/Time Associated Diagnosis Comments PROCEDURE W/ C-ARM 05/06/2017 Herniated lumbar disc 10:05 AM CDT without myelopathy Special Needs (C-ARM/ZEYAD H) INJECTION,EPIDURAL 05/06/2017 Herniated lumbar disc STEROID LUMBAR 10:05 AM CDT without myelopathy TRANSFORAMINAL Special Needs (C-ARM/ZEYAD H) after 01/01/2017 Results * [place] supervisor fine grading in or 30 minute increments (05/06/2017 9:28 AM) Specimen Performing Laboratory GE RIS Narrative FINAL REPORT Nondiagnostic exam. Radiology provided fluoroscopy for epidural injection performed by Dr. Valdez.Neither radiologist presence nor interpretation were requested. Please refer to the operative report for further information. Fluoroscopy time was 0.5 minutes. Total # of images: 3 Signed: Shen Campos MD Report Verified Date/Time:05/06/2017 11:51:48 Reading Location: [address] Radiology Reading Room Procedure Note Interface, [...] Report Verified Date/Time: 05/06/2017 11:51:48 Reading Location: [address] Radiology Reading Room after 01/01/2017
[2018-01-02 16:08] LABS: BILIRUBIN,URINE NEGATIVE (NEGATIVE); CLARITY,URINE CLEAR (CLEAR); COLOR,URINE YELLOW (YELLOW); KETONES,URINE NEGATIVE (NEGATIVE); LEUKOCYTE ESTERASE ,URINE NEGATIVE (NEGATIVE); NITRITE,URINE NEGATIVE (NEGATIVE); PROTEIN,URINE DIPSTICK NEGATIVE (NEGATIVE); URINE UROBILINOGEN 0.2 mg/dL (0.2 - 1)
[2018-01-02 16:19] LABS: WBC,URINE (MAN) 0-5 /HPF (0-5)
[2018-01-02] MEDS ORDERED: LABETALOL HCL 5 MG/ML 20ML VIAL IV STA (16:21)
[2018-01-02] MEDS ORDERED: METOPROLOL TARTRATE 25 MG TAB PO ONE (16:30)
== END 2018-01-02 16:39 | disposition left against medical advice (07) ==
LOC: ER 14:05 → ERHOLD 15:56
DX: R07.9 Chest pain, unspecified (principal); I25.10 Atherosclerotic heart disease of native coronary artery without angina pectoris; I10 Essential (primary) hypertension; E78.5 Hyperlipidemia, unspecified
CPT/HCPCS: 36415; 71046; 80053; 81001; 82550; 82553; 84484; 85025; 85610; 93005; 99284; G0378